=== PATIENT | male | born 1960 ===

== ENCOUNTER 2018-01-21 15:09 | Inpatient (IN) | payer OTHER ==
[2018-01-21] MEDS ORDERED: Morphine 4 mg/ml ISec IVP STA (15:41)
--- NOTE | 2018-01-21 15:47 | ED PDOC ---
Arrival/HPI - General Chief Complaint: Abdominal Pain Time Seen by Provider: 01/21/18 15:21 Historian: Patient, Family - History of Present Illness Narrative History of Present Illness (Text): 01/21/18 15:38 Patient is a 57 year old male whose past medical history includes colon cancer, and colon resection, who presents to the Emergency department with his family members for worsening abdominal pain. Patient was diagnosed with colon cancer in 2017 and is being treated with chemo-radiation therapy. He reports experiencing left sided abdominal pain for the past month, but presents to the emergency room today because the pain has become more severe, and is not alleviated with Percocet and Morphine. Of note per , patient last took Percocet and Morphine at 14:00 today. He denies any fever, vomiting, diarrhea, shortness of breath, and states he is eating well. He does note feeling bloated for the past few days. Oncologist: Time/Duration: Other (1 month) Symptom Onset: Gradual Symptom Course: Worsening Context: Other (chemo and radiation therapy) Past Medical History - Provider Review Nursing Documentation Reviewed: Yes - Cardiac Hx Hypertension: Yes - Hematological/Oncological Hx Cancer: Yes (Colon) Hx Chemotherapy: Yes - Psychiatric Hx Substance Use: No - Surgical History Hx Cataract Extraction: Yes Other/Comment: Colon surgery - Suicidal Assessment Feels Threatened In Home Enviroment: No Family/Social History - Physician Review Nursing Documentation Reviewed: Yes Family/Social History: Unknown Family HX Smoking Status: Light Smoker < 10 Cigarettes Daily Hx Alcohol Use: Yes Frequency of alcohol use: Socially Hx Substance Use: No Allergies/Home Meds Allergies/Adverse Reactions: Allergies No Known Allergies Allergy (Verified 01/21/18 15:24) Home Medications: Home Meds Medication Instructions Recorded Confirmed Felodipine [Felodipine ER] 1 tab PO DAILY 06/30/14 07/26/14 Losartan/Hydrochlorothiazide 1 tab DAILY 06/30/14 07/26/14 [Losartan Potassium-Hydrochlorothiazide 12.5 M] Fenofibrate [Triglide] 50 mg PO DAILY 07/26/14 07/26/14 Physical Exam - Physical Exam Narrative Physical Exam (Text): 01/21/18 15:50 Head: Atraumatic. Normocephalic. Eyes: PERRL. EOMI. Conjunctivae are not pale. ENT: Mucous membranes are moist and intact. Oropharynx is clear and symmetric. Sclera anicteric. Neck: Supple. Full ROM. No JVD. No lymphadenopathy. Cardiovascular: Regular rate. Regular rhythm. No murmurs, rubs, or gallops. Distal pulses are 2+ and symmetric. Pulmonary/Chest: No evidence of respiratory distress. Clear to auscultation bilaterally. No wheezing, rales or rhonchi. Abdominal: Soft and mildly distended. Focal left lower quadrant tenderness. No rebound. No rigidity. NO pulsatile masses. No inguinal hernias palpated.. No Good bowel sounds. Rectal: no gross bleeding Back: No CVA tenderness. Extremities: No edema. No cyanosis. No clubbing. Full range of motion in all extremities. No calf tenderness. Skin: Skin is warm and dry. No petechiae. No purpura. Neurological: Alert, awake, and oriented. Motor and sensory exam intact. Psychiatric: Good eye contact. Normal interaction, affect, and behavior. 01/21/18 20:23 Vital Signs Reviewed: Yes Vital Signs Temp Pulse Resp BP Pulse Ox 01/21/18 15:16 98.1 F 92 H 18 155/98 H 97 Temperature: Afebrile Blood Pressure: Hypertensive Pulse: Regular Respiratory Rate: Normal Appearance: Positive for: Ill-Appearing Mental Status: Positive for: Alert and Oriented X 3 Medical Decision Making ED Course and Treatment: 01/21/18 15:38 Impression: 57 year old male who has colon cancer and is complaining of ongoing worsening abdominal pain for the past month, which today has increased in severity. Differential Diagnosis included but are not limited to: Plan: -- Abdominal and Pelvic CT with IV contrast -- EKG -- Labs -- Cardiac enzymes -- Blood work -- Chest X-ray -- Morphine -- IV fluids -- Blood and Urine Culture -- Urinalysis -- Reassess and disposition Prior Visits: Notes and results from previous visits were reviewed. Progress Notes: 01/21/18 16:43 On reevaluation patient's pain has significantly improved after receiving IV morphine. He currently rates his pain as a 2/10 in severity. Ordered oral potassium for hypokalemia. Awaiting CT scan at this time. 01/21/18 17:[address] with contrast: Dictator : Kamaljit Estrada MD IMPRESSION: No acute findings 01/21/18 18:31 Chest X-ray: Dictator : Kamaljit Estrada MD IMPRESSION: Small pleural effusions Patient on return from ct with return of severe pain, left sided. I communicated with his physician Dr. Macedo and reviewed patient's symptoms and history, pain reportedly present for quite some time but acutely worse. NO chest pain. No shortness of breath. Effusion noted on cxr but no respiratory symptoms currently. Additional iv morphine ordered. Currently no acute findings noted on CT but due to persistent pain, limitations of imaging, will admit for serial exams, observation. Case d/w oncall physician Dr. Yost, who agrees to admit patient with GI and oncology consultations. Patient afebrile in ED VS stable. 01/21/18 20:21 - Lab Interpretations I have reviewed the lab results: Yes - RAD Interpretation Inventory Control Manager: Radiologist - Scribe Statement The provider has reviewed the documentation as recorded by the Scribe Adilson Shanks Provider Scribe Attestation: All medical record entries made by the Scribe were at my direction and personally dictated by me. I have reviewed the chart and agree that the record accurately reflects my personal performance of the history, physical exam, medical decision making, and the department course for this patient. I have also personally directed, reviewed, and agree with the discharge instructions and disposition. Disposition/Present on Arrival - Present on Arrival Any Indicators Present on Arrival: No History of DVT/PE: No History of Uncontrolled Diabetes: No Urinary Catheter: No History of Decub. Ulcer: No History Surgical Site Infection Following: None - Disposition Have Diagnosis and Disposition been Completed?: Yes Diagnosis: Abdominal pain, Pleural effusion Disposition: HOSPITALIZED Disposition Time: 17:30 Patient Plan: Admission, Observation Patient Problems: Current Active Problems Problem Status Onset Abdominal pain Acute Colon cancer metastasized to intra-abdominal lymph node Acute Pleural effusion Acute Condition: FAIR
[2018-01-21] MEDS: Sodium Chloride 0.9% 1,000 ML IV SCH (16:16)
[2018-01-21 16:25] LABS: PH,URINE 7.5 (4.7-8.0); URINE BILIRUBIN NEGATIVE (NEGATIVE); URINE BLOOD TRACE-INTACT (NEGATIVE); URINE GLUCOSE (UA) NEGATIVE (NEGATIVE); URINE LEUKOCYTE ESTERASE NEGATIVE Leu/uL (NEGATIVE); URINE PROTEIN NEGATIVE mg/dL (<30 mg/dL); URINE UROBILINOGEN 0.2 E.U./dL (<1 E.U./dL)
[2018-01-21 16:28] LABS: GRAN # 4.96 (1.4-6.5); GRAN % 71.3 % (50.0-68.0); HEMOGLOBIN 14.9 g/dL (14.0-18.0); LYMPH # 1.3 (1.2-3.4); LYMPH % 18.6 % (22.0-35.0); MEAN CELL VOLUME 92.4 fl (80.0-105.0); MEAN CORPUSCULAR HEMOGLOBIN 31.4 pg (25.0-35.0); MEAN PLATELET VOLUME 8.8 fl (7.0-11.0); MONO # 0.7 (0.1-0.6); MONO % 10.1 % (1.0-6.0); RBC 4.74 10^6/uL (3.5-6.1); RED CELL DISTRIBUTION WIDTH 14.3 % (11.5-14.5)
[2018-01-21 16:28] LABS: URINE APPEARANCE CLEAR (CLEAR); URINE COLOR STRAW (YELLOW)
[2018-01-21 16:29] LABS: INR 0.97
[2018-01-21 16:30] LABS: URINE BACTERIA FEW (NEG); URINE WBC 0 - 2 /hpf (0-6)
[2018-01-21] MEDS ORDERED: Iohexol 350 MG/100 ML VIAL ONE (16:35)
[2018-01-21 16:38] LABS: ALB/GLOB RATIO 1.2 (1.1-1.8); ALBUMIN 3.2 g/dL (3.0-4.8); ALT/SGPT 39 U/L (7-56); AMYLASE 78 U/L (35-125); AST/SGOT 33 U/L (17-59); BLOOD UREA NITROGEN 12 mg/dL (7-21); CALCIUM 8.1 mg/dL (8.4-10.5); GFR NON-AFRICAN AMERICAN > 60
[2018-01-21] MEDS ORDERED: Potassium Chloride 20 mEq ER Tab PO STA (16:39)
[2018-01-21 16:41] LABS: PARTIAL THROMBOPLASTIN TIME 48.8 Seconds (25.1-36.5)
[2018-01-21 16:48] LABS: TROPONIN I < 0.01 ng/mL
[2018-01-21] MEDS ORDERED: Morphine 2 mg/ml ISec IVP STA ×2 (17:19→23:33)
--- NOTE | 2018-01-21 17:31 | CT ---
Date of service: 01/21/2018 PROCEDURE: CT Abdomen and Pelvis with contrast HISTORY: severe pain hx of colon cancer, left sided pain COMPARISON: None. TECHNIQUE: Contrast dose: 100 cc of Omni 350 Radiation dose: Total exam DLP = 890.15 mGy-cm. This CT exam was performed using one or more of the following dose reduction techniques: Automated exposure control, adjustment of the mA and/or kV according to patient size, and/or use of iterative reconstruction technique. FINDINGS: LOWER THORAX: Moderate size pleural effusions bilaterally with adjacent consolidation LIVER: Unremarkable. No gross lesion or ductal dilatation. GALLBLADDER AND BILE DUCTS: Unremarkable. PANCREAS: Unremarkable. No gross lesion or ductal dilatation. SPLEEN: Unremarkable. ADRENALS: Unremarkable. No mass. KIDNEYS AND URETERS: Unremarkable. No hydronephrosis. No solid mass. VASCULATURE: Unremarkable. No aortic aneurysm. Mild aortic calcification BOWEL: Unremarkable. No obstruction. No gross mural thickening. There is a moderate degree of constipation. A suture line is seen in the transverse colon APPENDIX: Normal appendix. PERITONEUM: Minimal free fluid in the pelvis LYMPH NODES: Unremarkable. No enlarged lymph nodes. BLADDER: Unremarkable. REPRODUCTIVE: Unremarkable. BONES: No acute fracture. OTHER FINDINGS: None. IMPRESSION: No acute findings
--- NOTE | 2018-01-21 17:47 | RAD ---
Date of service: 01/21/2018 HISTORY: severe abdominal pain COMPARISON: No prior. FINDINGS: LUNGS: No active pulmonary disease. PLEURA: Small pleural effusions CARDIOVASCULAR: No aortic atherosclerotic calcification present. Normal cardiac size. No pulmonary vascular congestion. OSSEOUS STRUCTURES: No significant abnormalities. VISUALIZED UPPER ABDOMEN: Normal. OTHER FINDINGS: None. IMPRESSION: Small pleural effusions
[2018-01-21] MEDS: HYDROmorphone 0.5 mg/0.5 ml ISec IVP PRN (22:12)
[2018-01-22] MEDS: HYDROmorphone 0.5 mg/0.5 ml ISec IVP PRN ×2 (01:07→04:14)
[2018-01-22] MEDS ORDERED: HYDROmorphone 0.5 mg/0.5 ml ISec IVP STA (01:34)
[2018-01-22] MEDS ORDERED: Morphine 4 mg/ml ISec IVP STA (06:59)
[2018-01-22] MEDS ORDERED: HYDROmorphone 2 mg/ml ISec IVP PRN (07:27)
[2018-01-22 09:08] LABS: ALB/GLOB RATIO 1.4 (1.1-1.8); ALBUMIN 3.9 g/dL (3.0-4.8); ALT/SGPT 37 U/L (7-56); AST/SGOT 32 U/L (17-59); BLOOD UREA NITROGEN 16 mg/dL (7-21); CALCIUM 9.3 mg/dL (8.4-10.5); GFR NON-AFRICAN AMERICAN > 60
[2018-01-22 09:16] LABS: BASO # 0.01 K/mm3 (0.0-2.0); BASO % 0.1 % (0.0-3.0); EOS % 0.5 % (1.5-5.0); GRAN # 5.4 (1.4-6.5); GRAN % 69.9 % (50.0-68.0); HEMOGLOBIN 14.8 g/dL (14.0-18.0); LYMPH # 1.2 (1.2-3.4); LYMPH % 15.2 % (22.0-35.0); MEAN CELL VOLUME 93.9 fl (80.0-105.0); MEAN CORPUSCULAR HEMOGLOBIN 31.2 pg (25.0-35.0); MEAN CORPUSCULAR HGB CONC 33.3 g/dl (31.0-37.0); MEAN PLATELET VOLUME 9.3 fl (7.0-11.0); MONO # 1.1 (0.1-0.6); MONO % 14.3 % (1.0-6.0); RBC 4.74 10^6/uL (3.5-6.1); RED CELL DISTRIBUTION WIDTH 14.7 % (11.5-14.5); WHITE BLOOD COUNT 7.7 10^3/uL (4.5-11.0)
[2018-01-22] MEDS: HYDROmorphone 2 mg/ml ISec IVP PRN ×2 (09:21→12:02)
[2018-01-22] MEDS: Dexamethasone 4 mg/1 ml IVP SCH (09:24)
[2018-01-22] MEDS ORDERED: Non Formulary Medication (Losartan/Hydrochlorothiazide [Losartan-Hctz 50-12.5 Mg Tab] 1 TA PO SCH (10:00)
[2018-01-22] MEDS ORDERED: FENOFIBRATE 50 MG PO SCH (10:00)
[2018-01-22] MEDS ORDERED: Naproxen 275 mg Tab PO SCH (10:00)
[2018-01-22] MEDS: FELODIPINE 10 MG PO SCH (10:25)
--- NOTE | 2018-01-22 11:14 | CARD ---
APPROVED REPORT Date of service: 01/21/2018 EKG Measurement Heart [id number] <Conclusion> Normal sinus rhythm Nonspecific T wave abnormality Abnormal ECG
--- NOTE | 2018-01-22 11:46 | CP.PCM.CON ---
Addendum entered and electronically signed by Sheng Lopez DO 01/22/18 12:02: #Elevated PTT - Unclear etiology. We will recheck PTT in AM. Original Note: <Sheng Lopez - Last Filed: 01/22/18 11:38> History of Present Illness - History of Present Illness History of Present Illness: GI Fellow PGY4, Consult note. 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 From the history, the cancer appears to be stage IV. has records with her and PET scan 1 month ago shows a lot of new hypermetabolic changes in the abdomen and chest. Patient presents to ED for progressive chronic abdominal pain. The pain is located on the left side and more upper than lower abdomen. Patient has been taking more and more opiate pain medications Percocet and Morphine but it is not helping the pain. He does have chronic constipation but only take prune juice. He denies N/V or bleeding. Last EGD was many years ago. PMHx: As above. HTN. PSHx: Partial colectomy SocHx: Admits occasional alcohol use. Denies smoking. 12pt ROS completed and negative except for above. Past Patient History - Past Social History Smoking Status: Never Smoked - CARDIAC Hx Hypertension: Yes - HEMATOLOGICAL/ONCOLOGICAL Hx Cancer: Yes (Colon) Hx Chemotherapy: Yes - MUSCULOSKELETAL/RHEUMATOLOGICAL Hx Falls: No - PSYCHIATRIC Hx Substance Use: No - SURGICAL HISTORY Hx Cataract Extraction: Yes Other/Comment: Colon surgery Meds Allergies/Adverse Reactions: Allergies Allergy/AdvReac Type Severity Reaction Status Date / Time No Known Allergies Allergy Verified 01/21/18 15:24 - Medications Medications: Current Medications Dexamethasone (Decadron Inj) 4 mg IVP ONCE [facility] Last Admin: 01/22/18 09:24 Dose: 4 mg Fenofibrate (Tricor) 48 mg PO DAILY [facility] Last Admin: 01/22/18 09:26 Dose: 48 mg Hydrochlorothiazide (Microzide) 12.5 mg PO DAILY [facility] Last Admin: 01/22/18 09:26 Dose: 12.5 mg Hydromorphone HCl (Dilaudid) 2 mg IVP Q3 PRN PRN Reason: Pain, severe (8-10) Last Admin: 11/04/18 09:21 Dose: 2 mg Sodium Chloride (Sodium Chloride 0.9%) 1,000 mls @ 100 mls/hr IV .Q10H [facility] Last Admin: 01/21/18 16:16 Dose: 100 mls/hr Losartan Potassium (Cozaar) 50 mg PO DAILY [facility] Last Admin: 01/22/18 09:25 Dose: 50 mg Meclizine HCl (Antivert) 25 mg PO TID PRN PRN Reason: Dizziness Naproxen (Anaprox) 275 mg PO BID [facility] Last Admin: 01/22/18 09:24 Dose: 275 mg Felodipine [ Felodipine Er] 10 Mg (Home Med) 1 tab PO DAILY [facility] Last Admin: 01/22/18 10:25 Dose: 1 tab Physical Exam - Constitutional Appears: Non-toxic, No Acute Distress - Head Exam Head Exam: ATRAUMATIC, NORMAL INSPECTION - Eye Exam Eye Exam: EOMI, Normal appearance - ENT Exam ENT Exam: Mucous Membranes Moist, Normal Exam - Respiratory Exam Respiratory Exam: Clear to Auscultation Bilateral, NORMAL BREATHING PATTERN - Cardiovascular Exam Cardiovascular Exam: REGULAR RHYTHM, +S1, +S2 - GI/Abdominal Exam GI & Abdominal Exam: Distended, Hypoactive Bowel Sounds, Soft, Tenderness - Extremities Exam Extremities exam: Positive for: normal inspection. Negative for: tenderness - Neurological Exam Neurological exam: Alert, CN II-XII Intact, Oriented x3 - Psychiatric Exam Psychiatric exam: Normal Affect, Normal Mood - Skin Skin Exam: Dry, Normal Color Results - Vital Signs Recent Vital Signs: Last Vital Signs Temp 98.3 F 01/22/18 08:20 Pulse 71 01/22/18 09:25 Resp 20 01/22/18 08:20 BP 155/106 H 01/22/18 09:25 Pulse Ox 98 01/22/18 08:20 - Labs Result Diagrams: 01/22/18 08:50 01/22/18 08:30 Labs: Laboratory Results - last 24 hr 01/21/18 01/21/18 01/21/18 10:33 10:33 10:33 WBC 7.0 RBC 4.74 Hgb 14.9 Hct 43.8 MCV 92.4 MCH 31.4 MCHC 34.0 RDW 14.3 Plt Count 124 MPV 8.8 Gran % 71.3 H Lymph % (Auto) 18.6 L [place] % (Auto) 10.1 H Eos % (Auto) 0.0 L Baso % (Auto) 0.0 Gran # 4.96 Lymph # (Auto) 1.3 Rhea # (Auto) 0.7 H Eos # (Auto) 0.0 Baso # (Auto) 0.00 PT 11.0 INR 0.97 APTT 48.8 H Sodium 141 Potassium 3.1 L Chloride 108 H Carbon Dioxide 27 Anion Gap 9 L BUN 12 Creatinine 0.6 L Est GFR ( Amer) > 60 Est GFR (Non-Af Amer) > 60 POC Glucose (mg/dL) Random Glucose 112 H Calcium 8.1 L Total Bilirubin 0.4 AST 33 ALT 39 Alkaline Phosphatase 52 Lactate Dehydrogenase 631 Total Creatine Kinase 36 Troponin I < 0.01 Total Protein 5.8 Albumin 3.2 Globulin 2.6 Albumin/Globulin Ratio 1.2 Amylase 78 Urine Color Urine Appearance Urine pH Ur Specific [place] Urine Protein Urine Glucose (UA) Urine Ketones Urine Blood Urine Nitrate Urine Bilirubin Urine Urobilinogen Ur Leukocyte Esterase Urine RBC Urine WBC Urine Bacteria 01/21/18 01/21/18 01/22/18 15:40 15:52 08:30 WBC RBC Hgb Hct MCV MCH MCHC RDW Plt Count MPV Gran % Lymph % (Auto) Rhea % (Auto) Eos % (Auto) Baso % (Auto) Gran # Lymph # (Auto) Rhea # (Auto) Eos # (Auto) Baso # (Auto) PT INR APTT Sodium 140 Potassium 3.6 Chloride 106 Carbon Dioxide 26 Anion Gap 12 BUN 16 Creatinine 0.7 L Est GFR ( Amer) > 60 Est GFR (Non-Af Amer) > 60 POC Glucose (mg/dL) 118 H Random Glucose 193 H Calcium 9.3 Total Bilirubin 0.6 AST 32 ALT 37 Alkaline Phosphatase 58 Lactate Dehydrogenase Total Creatine Kinase Troponin I Total Protein 6.7 Albumin 3.9 Globulin 2.9 Albumin/Globulin Ratio 1.4 Amylase Urine Color Straw Urine Appearance Clear Urine pH 7.5 Ur Specific [place] 1.010 Urine Protein Negative Urine Glucose (UA) Negative Urine Ketones Negative Urine Blood Trace-intact H Urine Nitrate Negative Urine Bilirubin Negative Urine Urobilinogen 0.2 Ur Leukocyte Esterase Negative Urine RBC 1 - 3 Urine WBC 0 - 2 Urine Bacteria Few 01/22/18 08:50 WBC 7.7 RBC 4.74 Hgb 14.8 Hct 44.5 MCV 93.9 MCH 31.2 MCHC 33.3 RDW 14.7 H Plt Count 123 MPV 9.3 Gran % 69.9 H Lymph % (Auto) 15.2 L [place] % (Auto) 14.3 H Eos % (Auto) 0.5 L Baso % (Auto) 0.1 Gran # 5.40 Lymph # (Auto) 1.2 Rhea # (Auto) 1.1 H Eos # (Auto) 0.0 Baso # (Auto) 0.01 PT INR APTT Sodium Potassium Chloride Carbon Dioxide Anion Gap BUN Creatinine Est GFR ( Amer) Est GFR (Non-Af Amer) POC Glucose (mg/dL) Random Glucose Calcium Total Bilirubin AST ALT Alkaline Phosphatase Lactate Dehydrogenase Total Creatine Kinase Troponin I Total Protein Albumin Globulin Albumin/Globulin Ratio Amylase Urine Color Urine Appearance Urine pH Ur Specific [place] Urine Protein Urine Glucose (UA) Urine Ketones Urine Blood Urine Nitrate Urine Bilirubin Urine Urobilinogen Ur Leukocyte Esterase Urine RBC Urine WBC Urine Bacteria Assessment & Plan - Assessment and Plan (Free Text) Assessment: 57M with 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 #Progressive abdominal pain #Chronic constipation #Signet Ring Cell Colon Cancer - Aggressive, likely stage IV #Pleural effusions - suspected malignant #HTN PLAN: -DDx: Cancer related pain, PUD, constipation -CT scan reviewed. No acute finding, but a lot of stool in colon. Periaortic lym phadenopathy. -PET scan results reviewed. Test done 1 month ago with significant new hypermetabolic lesions diffusely. -Clear liquid diet -Start Bowel regimen. MiraLax BID. PA Colace. -Start PPI, carafate -Stop NSAIDs -Plan for EGD in AM. -Agree with consult for pain management. - Date & Time Date: 01/22/18 Time: 11:49 <Gracie Ellis V - Last Filed: 01/22/18 18:51> Meds - Medications Medications: Current Medications Dexamethasone (Decadron Inj) 4 mg IVP ONCE [facility] Last Admin: 01/22/18 09:24 Dose: 4 mg Fenofibrate (Tricor) 48 mg PO DAILY [facility] Last Admin: 01/22/18 09:26 Dose: 48 mg Home Med (Home Med) 1 unit PO DAILY [facility] Hydrochlorothiazide (Microzide) 12.5 mg PO DAILY [facility] Last Admin: 01/22/18 09:26 Dose: 12.5 mg Hydromorphone HCl (Dilaudid) 2 mg IVP Q2 PRN PRN Reason: Pain, severe (8-10) Sodium Chloride (Sodium Chloride 0.9%) 1,000 mls @ 100 mls/hr IV .Q10H [facility] Last Admin: 01/22/18 13:24 Dose: 100 mls/hr Losartan Potassium (Cozaar) 50 mg PO DAILY [facility] Last Admin: 01/22/18 09:25 Dose: 50 mg Meclizine HCl (Antivert) 25 mg PO TID PRN PRN Reason: Dizziness Morphine Sulfate (Morphine Extended Release Tab) 60 mg PO Q12 [facility] Last Admin: 01/22/18 13:04 Dose: 60 mg Felodipine [ Felodipine Er] 10 Mg (Home Med) 1 tab PO DAILY [facility] Last Admin: 01/22/18 10:25 Dose: 1 tab Pantoprazole Sodium (Protonix Ec Tab) 40 mg PO 0600 [facility] Polyethylene Glycol (Miralax) 17 gm PO BID [facility] Last Admin: 01/22/18 18:46 Dose: Not Given Results - Vital Signs Recent Vital Signs: Last Vital Signs Temp 98.2 F 01/22/18 16:40 Pulse 76 01/22/18 16:40 Resp 20 01/22/18 16:40 BP 134/88 01/22/18 16:40 Pulse Ox 96 01/22/18 16:40 - Labs Result Diagrams: 01/22/18 08:50 01/22/18 08:30 Labs: Laboratory Results - last 24 hr 01/22/18 01/22/18 08:30 08:50 WBC 7.7 RBC 4.74 Hgb 14.8 Hct 44.5 MCV 93.9 MCH 31.2 MCHC 33.3 RDW 14.7 H Plt Count 123 MPV 9.3 Gran % 69.9 H Lymph % (Auto) 15.2 L Rhea % (Auto) 14.3 H Eos % (Auto) 0.5 L Baso % (Auto) 0.1 Gran # 5.40 Lymph # (Auto) 1.2 Rhea # (Auto) 1.1 H Eos # (Auto) 0.0 Baso # (Auto) 0.01 Sodium 140 Potassium 3.6 Chloride 106 Carbon Dioxide 26 Anion Gap 12 BUN 16 Creatinine 0.7 L Est GFR ( Amer) > 60 Est GFR (Non-Af Amer) > 60 Random Glucose 193 H Calcium 9.3 Total Bilirubin 0.6 AST 32 ALT 37 Alkaline Phosphatase 58 Total Protein 6.7 Albumin 3.9 Globulin 2.9 Albumin/Globulin Ratio 1.4 Attending/Attestation - Attestation I have personally seen and examined this patient.: Yes I have fully participated in the care of the patient.: Yes I have reviewed all pertinent clinical information: Yes Notes (Text): This is an addendum to GI consult report dictated by the GI Fellow.The patient was seen and examined earlier. Medical records, lab studies, imagings were reviewed. Last 24 hours events reviewed. Agreed with the above treatment plan as outlined in GI Fellow 's notes with the addition of the following This 57 year old patient with aggressive signet cell colon cancer admitted with intractable abdominal pain Patient has been on chemo, on pain medication Admitted with worsening of the pain mainly in the upper abdomen On examination patient had significant tenderness in the upper abdomen CT scan was reviewed Recent PET scan report was also reviewed Plan clear liquids, high dose PPI and carafate, miralax EGD in AM Pain control 01/22/18 18:48
[2018-01-22] MEDS ORDERED: HYDROmorphone 2 mg/ml ISec IVP SCH (12:00)
[2018-01-22] MEDS: POLYETHYLENE GLYCOL 3350 17 GM/Dose PACKET PO SCH ×3 (13:04→18:46)
[2018-01-22] MEDS: Morphine 30 mg SR Tab PO SCH ×2 (13:04→21:27)
[2018-01-22] MEDS: Sodium Chloride 0.9% 1,000 ML IV SCH (13:24)
[2018-01-22] MEDS ORDERED: Home Med 1 UNIT PO SCH (17:45)
--- NOTE | 2018-01-22 19:56 | CP.PCM.CON ---
History of Present Illness - History of Present Illness History of Present Illness: 57 yo man, known to the office with history of metastatic colon cancer, h/o bowel resection in 2017, found to have metastatic cancer soon after and has been on chemotherapy since( 5FU, oxalipaltin, camptosar and to be changed to Vectib ix) The patient has been c/o increasing pain for the past 3 weeks or so, had his morphine increased along with the percocet, but as per the patient he was told by the pharmacist that the dose was too high, so he remained on the lower dose of the meds. The scans do not reveal the true extent of the disease, which is primarily in several lymph node groups in the chest and abdomen and soft tissue subcutaneous lesions. He has also had radiation to the lymph node mass in the left diaphragmatic area without much relief. The patient is currently stable on the current dose of dilaudid and pain meds. He is also scheduled for an EGD Past Patient History - Past Social History Smoking Status: Never Smoked - CARDIAC Hx Hypertension: Yes - HEMATOLOGICAL/ONCOLOGICAL Hx Cancer: Yes (Colon) Hx Chemotherapy: Yes - MUSCULOSKELETAL/RHEUMATOLOGICAL Hx Falls: No - PSYCHIATRIC Hx Substance Use: No - SURGICAL HISTORY Hx Cataract Extraction: Yes Other/Comment: Colon surgery Meds Allergies/Adverse Reactions: Allergies Allergy/AdvReac Type Severity Reaction Status Date / Time No Known Allergies Allergy Verified 01/21/18 15:24 - Medications Medications: Current Medications Dexamethasone (Decadron Inj) 4 mg IVP ONCE [facility] Last Admin: 01/22/18 09:24 Dose: 4 mg Fenofibrate (Tricor) 48 mg PO DAILY [facility] Last Admin: 01/22/18 09:26 Dose: 48 mg Home Med (Home Med) 1 unit PO DAILY [facility] Hydrochlorothiazide (Microzide) 12.5 mg PO DAILY [facility] Last Admin: 01/22/18 09:26 Dose: 12.5 mg Hydromorphone HCl (Dilaudid) 2 mg IVP Q2 PRN PRN Reason: Pain, severe (8-10) Sodium Chloride (Sodium Chloride 0.9%) 1,000 mls @ 100 mls/hr IV .Q10H [facility] Last Admin: 01/22/18 13:24 Dose: 100 mls/hr Losartan Potassium (Cozaar) 50 mg PO DAILY [facility] Last Admin: 01/22/18 09:25 Dose: 50 mg Meclizine HCl (Antivert) 25 mg PO TID PRN PRN Reason: Dizziness Morphine Sulfate (Morphine Extended Release Tab) 60 mg PO Q12 [facility] Last Admin: 01/22/18 13:04 Dose: 60 mg Felodipine [ Felodipine Er] 10 Mg (Home Med) 1 tab PO DAILY [facility] Last Admin: 01/22/18 10:25 Dose: 1 tab Pantoprazole Sodium (Protonix Ec Tab) 40 mg PO 0600 [facility] Polyethylene Glycol (Miralax) 17 gm PO BID [facility] Last Admin: 01/22/18 18:46 Dose: Not Given Results - Vital Signs Recent Vital Signs: Last Vital Signs Temp 98.2 F 01/22/18 16:40 Pulse 76 01/22/18 16:40 Resp 20 01/22/18 16:40 BP 134/88 01/22/18 16:40 Pulse Ox 96 01/22/18 16:40 - Labs Result Diagrams: 01/22/18 08:50 01/22/18 08:30 Labs: Laboratory Results - last 24 hr 01/22/18 01/22/18 08:30 08:50 WBC 7.7 RBC 4.74 Hgb 14.8 Hct 44.5 MCV 93.9 MCH 31.2 MCHC 33.3 RDW 14.7 H Plt Count 123 MPV 9.3 Gran % 69.9 H Lymph % (Auto) 15.2 L [place] % (Auto) 14.3 H Eos % (Auto) 0.5 L Baso % (Auto) 0.1 Gran # 5.40 Lymph # (Auto) 1.2 [place] # (Auto) 1.1 H Eos # (Auto) 0.0 Baso # (Auto) 0.01 Sodium 140 Potassium 3.6 Chloride 106 Carbon Dioxide 26 Anion Gap 12 BUN 16 Creatinine 0.7 L Est GFR ( Amer) > 60 Est GFR (Non-Af Amer) > 60 Random Glucose 193 H Calcium 9.3 Total Bilirubin 0.6 AST 32 ALT 37 Alkaline Phosphatase 58 Total Protein 6.7 Albumin 3.9 Globulin 2.9 Albumin/Globulin Ratio 1.4 Assessment & Plan (1) Colon cancer metastasized to intra-abdominal lymph node Assessment and Plan: 57 yo man with metastatic colon cancer to multiple lymph node sites, possible new malignant pleural effusions, increasing CEA level, scheduled to change chemo this week, admitted with increasing pain, without nausea, vomiting, currently comfortable with increased pain meds. There seems to be no evidence of perforation, obstruction on the CAT scans. For EGD to R/O gastric pathology. If normal, tolerating PO and the pain is under control, the patient may be discharged home so that he can start his new chemo. Status: Acute
[2018-01-22 21:22] LABS: ALB/GLOB RATIO 1.3 (1.1-1.8); ALBUMIN 3.9 g/dL (3.0-4.8); ALT/SGPT 38 U/L (7-56); AST/SGOT 31 U/L (17-59); BLOOD UREA NITROGEN 12 mg/dL (7-21); CALCIUM 9.4 mg/dL (8.4-10.5); GFR NON-AFRICAN AMERICAN > 60
[2018-01-23] MEDS: Oxycodone/Acetaminophen 10/325 mg Tab PO PRN ×5 (00:02→22:13)
--- NOTE | 2018-01-23 03:49 | HP ---
DATE OF EXAM: The patient was seen and examined on 01/22/2018. CHIEF COMPLAINT: Abdominal pain. HISTORY OF PRESENT ILLNESS: Mr. Kenan Soto is a 57-year-old male with past medical history of colon cancer, colon resection, status post chemotherapy and radiation therapy, came to emergency department with family with worsening of abdominal pain started couple of years ago. The patient was diagnosed with colon cancer in 2017 and being treated with chemoradiation therapy was done. He reports experiencing left-sided abdominal pain for the past month, but represents to the emergency room, they told because the pain had become more severe and is not alleviated with Percocet and morphine. The patient's sister was standing on the bedside. The patient with Percocet and morphine, but still in pain, according to him even while he was moving he is having tearing pain in either upper part of the abdomen. Denies nausea, vomiting or diarrhea. No GERD. No dyspepsia. We admitted the patient. GI and Oncology saw the patient. PAST MEDICAL HISTORY: Colon cancer, hypertension, and status post chemotherapy and radiation therapy. FAMILY HISTORY: Father and mother noncontributory. HABITS: Light smoker less than 10 cigarettes. Alcohol, yes. Substance abuse, no. ALLERGIES: THE PATIENT IS NOT ALLERGIC WITH ANY MEDICATIONS. HOME MEDICATIONS: Losartan, hydrochlorothiazide, potassium, and fenofibrate. REVIEW OF SYSTEMS: The patient was seen and examined at bedside, sitting on the recliner, but still complaining of both abdominal pain in the upper part. No fever. No chills. No nausea, vomiting, or diarrhea. According to him, pain is like tearing pain. No hematuria or hematochezia. PHYSICAL EXAMINATION: VITAL SIGNS: Temperature 98.1, pulse 92, respiratory rate 18, blood pressure , and pulse oximetry 97. HEENT: Head is normocephalic and atraumatic. Eyes: PERRLA. Extraocular muscles intact. Conjunctivae clear. Nose patent. Mucous membranes moist. NECK: Supple. No carotid bruit. No JVD or thyromegaly. CHEST: Bilaterally symmetrical. HEART: S1 and S2 positive. LUNGS: Clear to auscultation. ABDOMEN: Soft. Bowel sounds present. No organomegaly. EXTREMITIES: No edema. No cyanosis. NEUROLOGIC: The patient is awake and alert. Moving all 4 extremities. No focal deficits. LABORATORY DATA: White blood cells 7.7, hemoglobin 14.8, hematocrit 44.8, and platelets 123. Sodium 140, potassium 3.6, BUN 15, and creatinine 0.7. Glucose 193. ASSESSMENT AND PLAN: Mr. Kenan Soto is a 57-year-old male with hypokalemia replaced , hyperchloremia, and hyperglycemia. First, had hypocalcemia, but repeat is within normal limits. Hematuria. Went for CAT scan of abdomen and pelvis, chest x-ray, electrocardiogram, seen by Dr. Jazmin Rodriguez, oncologist and Dr. Gracie Ellis, agronomist. The patient's PTT is high, unclear reason. The patient has aggressive signet ring cell, colon cancer diagnosed in 02/2007, status post resection, chemotherapy and radiation therapy. According to GI, it looks like stage IV cancer. According to , PET scan was done one month ago shows a lot of new hypermetabolic changes in the abdomen and chest. History of hypertension, partial colectomy, occasional alcohol and smoking, progressive abdominal pain, chronic constipation, pleural effusion suspect malignancy, looks like the patient has pain of the malignancy, peptic ulcer disease, constipation. CAT scan reviewed. PET scan reviewed done one month ago. Started clear liquid diet, started bowel regimen by GI for MiraLax p.r.n. started PPI and Carafate, stop NSAIDs. Plan is EGD tomorrow. Discussion done with the patient and the patient's sister sitting on the bedside. I started the patient on morphine by Dr. Jennifer Wu, the pain medication. Repeat lab. Out of bed. Physical therapy. We will follow up. Kaylen Yost MD [place]
[2018-01-23] MEDS: Pantoprazole 40 mg EC Tab PO SCH (05:17)
[2018-01-23 07:12] LABS: HEMOGLOBIN 14.8 g/dL (14.0-18.0); MEAN CELL VOLUME 92.5 fl (80.0-105.0); MEAN CORPUSCULAR HEMOGLOBIN 30.9 pg (25.0-35.0); MEAN CORPUSCULAR HGB CONC 33.4 g/dl (31.0-37.0); MEAN PLATELET VOLUME 9.1 fl (7.0-11.0); RBC 4.79 10^6/uL (3.5-6.1); RED CELL DISTRIBUTION WIDTH 14.4 % (11.5-14.5); WHITE BLOOD COUNT 7.8 10^3/uL (4.5-11.0)
[2018-01-23 07:14] LABS: PARTIAL THROMBOPLASTIN TIME 31.5 Seconds (25.1-36.5); PROTHROMBIN TIME 11.5 SECONDS (9.4-12.5)
[2018-01-23 07:22] LABS: IRON 150 ug/dL (45-180)
[2018-01-23 07:31] LABS: LDL CHOLESTEROL 95 mg/dL (0-129)
[2018-01-23 07:33] LABS: BLOOD UREA NITROGEN 15 mg/dL (7-21); CALCIUM 9.4 mg/dL (8.4-10.5); GFR NON-AFRICAN AMERICAN > 60; HDL CHOLESTEROL 67 mg/dL (29-60)
[2018-01-23 07:37] LABS: % IRON SATURATION 37 % (20-55); TOTAL IRON BINDING CAPACITY 404 ug/dL (261-462)
--- NOTE | 2018-01-23 07:42 | CP.PCM.CON ---
History of Present Illness - History of Present Illness History of Present Illness: 57M with PMHx of signet ring cell colon cancer s/p right hemicolectomy, on chemotherapy and radiation. Patient presented [place] [facility] with complaints of abdominal pain. General surgery consulted to r/o bowel obstruction. Patient complaining of left sided abdominal pain. At time of examination patient denied nausea/vomiting. Patient reports he is passing flatus. PMHx: as stated above PSHx: R hemicolectomy SocHx: Denies smoking, denies illicit drug use. Review of Systems - Review of Systems Review of Systems: 12pt ROS unremarkable, except as stated in HPI Past Patient History - Past Social History Smoking Status: Light Smoker < 10 Cigarettes Daily - CARDIAC Hx Hypertension: Yes - HEMATOLOGICAL/ONCOLOGICAL Hx Cancer: Yes (Colon) Hx Chemotherapy: Yes - MUSCULOSKELETAL/RHEUMATOLOGICAL Hx Falls: No - PSYCHIATRIC Hx Substance Use: No - SURGICAL HISTORY Hx Cataract Extraction: Yes Other/Comment: Colon surgery Meds Allergies/Adverse Reactions: Allergies Allergy/AdvReac Type Severity Reaction Status Date / Time No Known Allergies Allergy Verified 01/21/18 15:24 - Medications Medications: Current Medications Dexamethasone (Decadron Inj) 4 mg IVP ONCE [facility] Last Admin: 01/22/18 09:24 Dose: 4 mg Fenofibrate (Tricor) 48 mg PO DAILY [facility] Last Admin: 01/22/18 09:26 Dose: 48 mg Home Med (Home Med) 1 unit PO DAILY [facility] Hydrochlorothiazide (Microzide) 12.5 mg PO DAILY [facility] Last Admin: 01/22/18 09:26 Dose: 12.5 mg Hydromorphone HCl (Dilaudid) 2 mg IVP Q2 PRN PRN Reason: Pain, severe (8-10) Sodium Chloride (Sodium Chloride 0.9%) 1,000 mls @ 100 mls/hr IV .Q10H [facility] Last Admin: 01/23/18 00:00 Dose: 100 mls/hr Losartan Potassium (Cozaar) 50 mg PO DAILY [facility] Last Admin: 01/22/18 09:25 Dose: 50 mg Meclizine HCl (Antivert) 25 mg PO TID PRN PRN Reason: Dizziness Morphine Sulfate (Morphine Extended Release Tab) 60 mg PO Q12 [facility] Last Admin: 01/22/18 21:27 Dose: 60 mg Felodipine [ Felodipine Er] 10 Mg (Home Med) 1 tab PO DAILY [facility] Last Admin: 01/22/18 10:25 Dose: 1 tab Oxycodone/Acetaminophen (Percocet 10/325 Mg Tab) 1 tab PO Q4H PRN PRN Reason: Pain, moderate (4-7) Last Admin: 01/23/18 06:19 Dose: 1 tab Pantoprazole Sodium (Protonix Ec Tab) 40 mg PO 0600 [facility] Last Admin: 01/23/18 05:17 Dose: 40 mg Polyethylene Glycol (Miralax) 17 gm PO BID [facility] Last Admin: 01/22/18 18:46 Dose: Not Given Physical Exam - Constitutional Appears: No Acute Distress - Head Exam Head Exam: NORMOCEPHALIC - Eye Exam Eye Exam: Normal appearance - ENT Exam ENT Exam: Mucous Membranes Moist - Respiratory Exam Respiratory Exam: NORMAL BREATHING PATTERN - Cardiovascular Exam Cardiovascular Exam: +S1, +S2 - GI/Abdominal Exam GI & Abdominal Exam: Soft, Tenderness. absent: Firm, Guarding, Rigid Additional comments: LLQ tenderness - Neurological Exam Neurological exam: Alert, Oriented x3 - Psychiatric Exam Psychiatric exam: Normal Mood - Skin Skin Exam: Dry, Intact, Warm Results - Vital Signs Recent Vital Signs: Last Vital Signs Temp 98.2 F 01/22/18 16:40 Pulse 79 01/23/18 06:19 Resp 20 01/22/18 16:40 BP 160/104 H 01/23/18 06:19 Pulse Ox 96 01/22/18 16:40 - Labs Result Diagrams: 01/23/18 06:45 01/23/18 06:45 Labs: Laboratory Results - last 24 hr 01/22/18 01/22/18 01/22/18 08:30 08:50 20:20 WBC 7.7 RBC 4.74 Hgb 14.8 Hct 44.5 MCV 93.9 MCH 31.2 MCHC 33.3 RDW 14.7 H Plt Count 123 MPV 9.3 Gran % 69.9 H Lymph % (Auto) 15.2 L Cherry % (Auto) 14.3 H Eos % (Auto) 0.5 L Baso % (Auto) 0.1 Gran # 5.40 Lymph # (Auto) 1.2 Cherry # (Auto) 1.1 H Eos # (Auto) 0.0 Baso # (Auto) 0.01 PT INR APTT Sodium 140 139 Potassium 3.6 3.7 Chloride 106 103 Carbon Dioxide 26 26 Anion Gap 12 13 BUN 16 12 Creatinine 0.7 L 0.6 L Est GFR ( Amer) > 60 > 60 Est GFR (Non-Af Amer) > 60 > 60 Random Glucose 193 H 172 H Calcium 9.3 9.4 Iron Total Bilirubin 0.6 0.8 AST 32 31 ALT 37 38 Alkaline Phosphatase 58 60 Total Protein 6.7 6.9 Albumin 3.9 3.9 Globulin 2.9 3.0 Albumin/Globulin Ratio 1.4 1.3 LDL Cholesterol Direct 01/23/18 01/23/18 01/23/18 06:45 06:45 06:45 WBC RBC Hgb Hct MCV MCH MCHC RDW Plt Count MPV Gran % Lymph % (Auto) Cherry % (Auto) Eos % (Auto) Baso % (Auto) Gran # Lymph # (Auto) Cherry # (Auto) Eos # (Auto) Baso # (Auto) PT 11.5 INR 1.00 APTT 31.5 Sodium Potassium Chloride Carbon Dioxide Anion Gap BUN Creatinine Est GFR ( Amer) Est GFR (Non-Af Amer) Random Glucose Calcium Iron 150 Total Bilirubin AST ALT Alkaline Phosphatase Total Protein Albumin Globulin Albumin/Globulin Ratio LDL Cholesterol Direct 95 01/23/18 06:45 WBC 7.8 RBC 4.79 Hgb 14.8 Hct 44.3 MCV 92.5 MCH 30.9 MCHC 33.4 RDW 14.4 Plt Count 120 MPV 9.1 Gran % Lymph % (Auto) Cherry % (Auto) Eos % (Auto) Baso % (Auto) Gran # Lymph # (Auto) Cherry # (Auto) Eos # (Auto) Baso # (Auto) PT INR APTT Sodium Potassium Chloride Carbon Dioxide Anion Gap BUN Creatinine Est GFR ( Amer) Est GFR (Non-Af Amer) Random Glucose Calcium Iron Total Bilirubin AST ALT Alkaline Phosphatase Total Protein Albumin Globulin Albumin/Globulin Ratio LDL Cholesterol Direct Assessment & Plan - Assessment and Plan (Free Text) Assessment: 57M with chronic abdominal pain, patient currently passing flatus Plan: -Patient currently passing flatus, bowel obstruction unlikely -F/u EGD results -C/w Analgesics -medical management per primary -Further recs per Dr. Shaq Nolan PGY3
[2018-01-23] MEDS: Morphine 30 mg SR Tab PO SCH ×2 (09:07→22:12)
[2018-01-23] MEDS: FELODIPINE 10 MG PO SCH (09:09)
[2018-01-23] MEDS: TENOFOVIR PO SCH (09:10)
[2018-01-23] MEDS: Sodium Chloride 0.9% 1,000 ML IV SCH ×3 (09:11→18:39)
[2018-01-23] MEDS: POLYETHYLENE GLYCOL 3350 17 GM/Dose PACKET PO SCH ×2 (09:11→17:40)
[2018-01-23] MEDS: Dexamethasone 4 mg/1 ml IVP SCH (10:02)
--- NOTE | 2018-01-23 11:26 | CP.PCM.PCO ---
Physician Communication Note - Physician Communication Note Physician Communication Note: Dx:Epigastric pain-EGD now/No surgery recommended
[2018-01-23 16:38] LABS: FOLATE > 20.0 ng/mL
[2018-01-23] MEDS ORDERED: Propofol 10 mg/ml Inj (20 ML) ONE (17:30)
[2018-01-23] MEDS ORDERED: Etomidate 20 mg/10ml Inj IV ONE (17:37)
[2018-01-23] MEDS ORDERED: HYDROmorphone 1 mg/ml ISec ONE (18:06)
[2018-01-23] MEDS ORDERED: Sodium Chloride 0.9% 1,000 ML IV SCH ×2 (18:15→18:45)
[2018-01-23] MEDS ORDERED: HYDROmorphone 1 mg/ml ISec IVP STA (18:31)
[2018-01-24] MEDS: HYDROmorphone 2 mg/ml ISec IVP PRN ×7 (01:49→22:26)
--- NOTE | 2018-01-24 02:52 | CON ---
DATE: 01/23/2018 PULMONARY CONSULTATION REFERRING PHYSICIAN: Kaylen Yost MD REASON FOR CONSULTATION: Pleural effusion, atelectasis, and short of breath. HISTORY OF PRESENT ILLNESS: This is a 57-year-old gentleman who has a known colon cancer, been resected in the past, been on radiation and chemotherapy, and hypertension. Recently about a month ago, had a PET scan done which shows recurrence of disease especially according to , lymph node involvements in the mediastinal, hilar, and retroperitoneal, been having left upper abdomen and also lower chest pain, tender to touch at the rib level. No hemoptysis. No hematemesis. No hematuria. No diarrhea reported. PAST MEDICAL HISTORY: As per history of present illness. ALLERGIES: NONE KNOWN. SOCIAL HISTORY: Stopped smoking many years ago. Denies any alcohol use. FAMILY HISTORY: No significant cardiopulmonary disease reported. MEDICATIONS: He is on meclizine 25 mg three times a day p.r.n., Cozaar 50 mg daily, Decadron 4 mg IV was given, Dilaudid 2 mg IV every 2 hours p.r.n. felodipine 1 tablet daily, hydrochlorothiazide 12.5 mg daily, MiraLax 17 g twice a day, also morphine extended release 60 mg every 12 hours, Percocet 10/325 mg one tablet every 4 hours p.r.n., Protonix 40 mg daily, and TriCor 48 mg daily. REVIEW OF SYSTEMS: No headache. No rhinitis. Has some cough and shortness of breath. Left anterior rib cage tenderness. Increased abdominal girth. No dysuria. No leg pain or leg swelling. PHYSICAL EXAMINATION: GENERAL: Sitting in the bed, mild distress secondary to abdominal and chest pain. VITAL SIGNS: Temperature is 98, heart rate is 62, respiratory rate is 18, blood pressure 151/98, and pulse ox 98% . HEENT: Moist mucous membranes. No ulcer or thrush. NECK: Supple. No JVD. LUNGS: Decreased breath sounds at both bases. HEART: S1 and S2. ABDOMEN: Soft and nontender. Has some ascites, midline surgical scar. Lower rib cage has rib tenderness on palpation. EXTREMITIES: There is no edema. NEUROLOGIC: Awake, alert, and follows simple commands. LABORATORY DATA: Shows hemoglobin 14.8, hematocrit 44.3, WBC 7.8, and platelets 120,000. INR 1. PTT is 32. Sodium 139, potassium 3.8, chloride 103, bicarbonate 29, BUN 15, creatinine 0.7, glucose 110, and calcium 9.4. Triglyceride 200 and cholesterol is 185. B12 is 882. Folate greater than 20. TSH 3.56. Microbiology, blood culture and urine culture, there is no growth. Has endoscopy done today which shows gastritis, normal duodenal bulb and second portion of the duodenum. IMPRESSION AND PLAN: Metastatic colon cancer involving lymph node at multiple sites, has a bilateral pleural effusion with atelectasis, ex-smoker, need to rule out bony metastasis. We will add inhaled bronchodilator. Continue gastric prophylaxis and DVT prophylaxis. We will get bone scan to assure there is no bony metastasis. I spoke to the patient's at bedside. All the questions answered. Thank you and we will follow with you. Alysia Mishra MD
--- NOTE | 2018-01-24 03:12 | PN ---
DATE: 01/23/2018 SUBJECTIVE: The patient was seen and examined at the bedside on 01/23/2018. The patient was seen sitting on the bed, have his dinner. and sister are on the bedside, also. No fever. No headache. No chest pain. No palpitations. Denied nausea, vomiting, passing flatus. PHYSICAL EXAMINATION: VITAL SIGNS: Temperature 98.2, pulse 79, respirations 20, blood pressure 130/104, pulse oximetry is 96. HEENT: Head is normocephalic, atraumatic. Eyes: PERRLA. Extraocular muscles are intact. Conjunctivae clear. Nose patent. NECK: Supple. No carotid bruits. No JVD or thyromegaly. CHEST: Bilaterally symmetrical. HEART: S1, S2 positive. LUNGS: Clear to auscultation. ABDOMEN: Soft. Bowel sounds present. No organomegaly. EXTREMITIES: No edema. No cyanosis. NEUROLOGICAL: The patient is awake, alert. Moving all four extremities. No focal deficit. LABORATORY DATA: White blood cells 7.4, hemoglobin 14.8, hematocrit 44.6, platelets 122. Sodium 131, potassium 3.8, BUN 50, creatinine 0.7, glucose 110. ASSESSMENT AND PLAN: Mr. Kenan Soto is a 57-year-old male who came with abdominal pain, history of colon cancer, right now passing flatus, bowel obstruction unlikely. Esophagogastroduodenoscopy done. Review Dr. New' communication report, no surgery recommended by Dr. New. Today the patient is planned for esophagogastroduodenoscopy. Esophagogastroduodenoscopy shows gastritis. Seen by oncologist, Dr. Jazmin Rodriguez. The patient with history of metastatic colon cancer, history of bowel obstruction in 2017, found to have metastatic cancer soon after and he has been on chemotherapy since, 5FU. Oncologist is planning to change the chemotherapy. The scan do not reveal any of the disease. The patient also has had radiation to the lymph node mass in the left diaphragmatic area without any relief. Currently, the patient is stable, GI and DVT prophylaxis, repeat labs, will follow up. Kaylen Yost MD [facility] # [id number] [place]
[2018-01-24] MEDS: Oxycodone/Acetaminophen 10/325 mg Tab PO PRN (05:41)
[2018-01-24] MEDS: Pantoprazole 40 mg EC Tab PO SCH (05:42)
[2018-01-24] MEDS: POLYETHYLENE GLYCOL 3350 17 GM/Dose PACKET PO SCH ×2 (09:45→17:22)
[2018-01-24] MEDS: Morphine 30 mg SR Tab PO SCH ×2 (09:46→21:25)
[2018-01-24] MEDS: FELODIPINE 10 MG PO SCH (09:46)
[2018-01-24] MEDS: TENOFOVIR PO SCH (09:47)
[2018-01-24] MEDS: Dexamethasone 4 mg/1 ml IVP SCH (09:50)
--- NOTE | 2018-01-24 11:07 | CP.PCM.PN ---
<Lara Ramos - Last Filed: 01/24/18 11:03> Subjective - Date & Time of Evaluation Date of Evaluation: 01/24/18 Time of Evaluation: 11:03 - Subjective Subjective: Gastroenterology Fellow/PGY6 Progress Note Patient sitting up in chair. Notes abdominal pain with attempting to lay flat. Tolerating diet. No bowel movement yesterday. A 12-point review of systems negative except for as above. Objective - Vital Signs/Intake and Output Vital Signs (last 24 hours): Temp Pulse Resp BP Pulse Ox 97.5 F L 72 20 179/85 H 99 01/24/18 08:28 01/24/18 10:00 01/24/18 08:28 01/24/18 08:28 01/24/18 08:28 Intake and Output: 01/24/18 01/24/18 06:59 18:59 Intake Total 420 Balance 420 - Medications Medications: Current Medications Arformoterol Tartrate (Brovana) 15 mcg IH [id number] [facility] Budesonide (Pulmicort Respules) 0.5 mg IH [id number] [facility] Dexamethasone (Decadron Inj) 4 mg IVP ONCE [facility] Last Admin: 01/24/18 09:50 Dose: 4 mg Fenofibrate (Tricor) 48 mg PO DAILY [facility] Last Admin: 01/24/18 09:46 Dose: 48 mg Fentanyl (Duragesic) 1 patch TD Q72H [facility] Last Admin: 01/24/18 10:37 Dose: 1 patch Home Med (Home Med) 1 unit PO DAILY [facility] Last Admin: 01/24/18 09:47 Dose: 1 unit Hydrochlorothiazide (Microzide) 12.5 mg PO DAILY [facility] Last Admin: 01/24/18 09:46 Dose: 12.5 mg Hydromorphone HCl (Dilaudid) 2 mg IVP Q2 PRN PRN Reason: Pain, severe (8-10) Last Admin: 01/24/18 07:09 Dose: 2 mg Losartan Potassium (Cozaar) 100 mg PO DAILY [facility] Last Admin: 01/24/18 09:47 Dose: 100 mg Meclizine HCl (Antivert) 25 mg PO TID PRN PRN Reason: Dizziness Morphine Sulfate (Morphine Extended Release Tab) 60 mg PO Q12 [facility] Last Admin: 01/24/18 09:46 Dose: 60 mg Felodipine [ Felodipine Er] 10 Mg (Home Med) 1 tab PO DAILY [facility] Last Admin: 01/24/18 09:46 Dose: 1 tab Oxycodone/Acetaminophen (Percocet 10/325 Mg Tab) 1 tab PO Q4H PRN PRN Reason: Pain, moderate (4-7) Last Admin: 01/24/18 05:41 Dose: 1 tab Pantoprazole Sodium (Protonix Ec Tab) 40 mg PO 0600 [facility] Last Admin: 01/24/18 05:42 Dose: 40 mg Polyethylene Glycol (Miralax) 17 gm PO BID [facility] Last Admin: 01/24/18 09:45 Dose: Not Given Pregabalin (Lyrica) 75 mg PO BID [facility] Last Admin: 01/24/18 10:37 Dose: 75 mg - Labs Labs: 01/23/18 06:45 01/23/18 06:45 PT 11.5 SECONDS (9.4-12.5) 01/23/18 06:45 INR 1.00 01/23/18 06:45 APTT 31.5 Seconds (25.1-36.5) 01/23/18 06:45 - Constitutional Appears: Non-toxic, No Acute Distress - Head Exam Head Exam: ATRAUMATIC, NORMOCEPHALIC - Eye Exam Eye Exam: EOMI, PERRL. absent: Scleral icterus Pupil Exam: PERRL. absent: Miosis, Mydriatic - ENT Exam ENT Exam: Mucous Membranes Moist, Normal Oropharynx - Neck Exam Neck Exam: Full ROM, Normal Inspection - Respiratory Exam Respiratory Exam: Clear to Ausculation Bilateral. absent: Rales, Rhonchi, Wheezes - Cardiovascular Exam Cardiovascular Exam: RRR, +S1, +S2. absent: Gallop, Rubs - GI/Abdominal Exam GI & Abdominal Exam: Soft, Tenderness, Normal Bowel Sounds. absent: Distended, Firm, Guarding, Rigid, Organomegaly, Rebound Additional comments: mild epigastric tenderness to palpation - Extremities Exam Extremities Exam: Normal Inspection. 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 Active treatment of upper abdominal pain 2/2 to aggressive colon cancer with metastases and bilateral pleural effusions. Plan: -POD1 (01/23) GED -showing gastritis, no acute pathology -ordered Duplex U/S to rule out portal system thrombosis -continue PPI daily -avoid NSAIDs -continue bowel regimen- Miralax BID and Colace PRN -continue to tailor pain management -pulmonology managing pulmonary toilet -follow up bone scan -will follow clinical course <Gracie Ellis V - Last Filed: 01/24/18 19:14> Objective - Vital Signs/Intake and Output Vital Signs (last 24 hours): Temp Pulse Resp BP Pulse Ox 98.4 F 82 20 139/94 H 98 01/24/18 16:39 01/24/18 18:00 01/24/18 16:39 01/24/18 16:39 01/24/18 16:39 Intake and Output: 01/24/18 01/25/18 18:59 06:59 Intake Total 900 Balance 900 - Medications Medications: Current Medications Arformoterol Tartrate (Brovana) 15 mcg IH [id number] [facility] Budesonide (Pulmicort Respules) 0.5 mg IH [id number] [facility] Dexamethasone (Decadron Inj) 4 mg IVP ONCE [facility] Last Admin: 01/24/18 09:50 Dose: 4 mg Fenofibrate (Tricor) 48 mg PO DAILY [facility] Last Admin: 01/24/18 09:46 Dose: 48 mg Fentanyl (Duragesic) 1 patch TD Q72H [facility] Last Admin: 01/24/18 10:37 Dose: 1 patch Home Med (Home Med) 1 unit PO DAILY [facility] Last Admin: 01/24/18 09:47 Dose: 1 unit Hydrochlorothiazide (Microzide) 12.5 mg PO DAILY [facility] Last Admin: 01/24/18 09:46 Dose: 12.5 mg Hydromorphone HCl (Dilaudid) 2 mg IVP Q2 PRN PRN Reason: Pain, severe (8-10) Last Admin: 01/24/18 18:11 Dose: 2 mg Losartan Potassium (Cozaar) 100 mg PO DAILY [facility] Last Admin: 01/24/18 09:47 Dose: 100 mg Meclizine HCl (Antivert) 25 mg PO TID PRN PRN Reason: Dizziness Morphine Sulfate (Morphine Extended Release Tab) 60 mg PO Q12 [facility] Last Admin: 01/24/18 09:46 Dose: 60 mg Felodipine [ Felodipine Er] 10 Mg (Home Med) 1 tab PO DAILY [facility] Last Admin: 01/24/18 09:46 Dose: 1 tab Oxycodone/Acetaminophen (Percocet 10/325 Mg Tab) 1 tab PO Q4H PRN PRN Reason: Pain, moderate (4-7) Last Admin: 01/24/18 05:41 Dose: 1 tab Pantoprazole Sodium (Protonix Ec Tab) 40 mg PO 0600 [facility] Last Admin: 01/24/18 05:42 Dose: 40 mg Polyethylene Glycol (Miralax) 17 gm PO BID [facility] Last Admin: 01/24/18 17:22 Dose: Not Given Pregabalin (Lyrica) 75 mg PO BID [facility] Last Admin: 01/24/18 18:08 Dose: 75 mg - Labs Labs: 01/23/18 06:45 01/23/18 06:45 PT 11.5 SECONDS (9.4-12.5) 01/23/18 06:45 INR 1.00 01/23/18 06:45 APTT 31.5 Seconds (25.1-36.5) 01/23/18 06:45 Attending/Attestation - Attestation I have personally seen and examined this patient.: Yes I have fully participated in the care of the patient.: Yes I have reviewed all pertinent clinical information, including history, physical exam and plan: Yes Notes (Text): This is an addendum to GI progress report dictated by the GI Fellow.The patient was seen and examined earlier. Medical records, lab studies, imagings were reviewed. Last 24 hours events reviewed. Agreed with the above treatment plan as outlined in GI Fellow 's notes with the addition of the following Patient's was at bedside The abdominal and chest pain probably secondary to metastatic disease Would recommend soft low residue diet Miralax for constipation Abdominal doppler to evaluate portal vein and hepatic vein 01/24/18 19:13
[2018-01-24] MEDS: Arformoterol 15 mcg/2 ml Inh Sol IH SCH (19:36)
[2018-01-24] MEDS: Budesonide 0.5 mg/2 ml Inhal Susp UD IH SCH (19:37)
--- NOTE | 2018-01-24 23:51 | PN ---
DATE: 01/24/2018 REFERRING PHYSICIAN: Kaylen Yost MD SUBJECTIVE: He is sitting up in a reclining chair, is at bedside, complaining of left lower chest area pain. No headache. No rhinitis. No dysuria. No leg pain or leg swelling. MEDICATIONS: He is on Antivert 25 mg three times a day p.r.n., Brovana inhaled twice a day, Cozaar 100 mg daily, Decadron 4 mg one dose was given, Dilaudid 2 mg every 12 hours p.r.n., Duragesic patch was started every 72 hours, Lyrica 75 mg twice a day, hydrochlorothiazide 12.5 mg daily, MiraLax 17 g daily, morphine extended release 60 mg every 12 hours, Percocet 10/325 every 4 hours p.r.n., Protonix 40 mg daily, Pulmicort inhaled twice a day, and TriCor 48 mg daily. OBJECTIVE: GENERAL: [id number] distress secondary to pain. VITAL SIGNS: Temperature is 98, heart rate is 82, respiratory rate is 20, blood pressure 139/94, and pulse ox 98% on room air. HEENT: Moist mucous membranes. Crowded airway. NECK: Supple. No JVD. LUNGS: Decreased breath sounds at the bases. HEART: S1 and S2. ABDOMEN: Soft. Left upper quadrant and right lower chest tenderness. EXTREMITIES: There is no edema. NEUROLOGIC: Awake, alert, and follows simple commands. LABORATORY DATA: Reviewed. No new lab is available since yesterday. Microbiology: Blood culture and urine culture, there is no growth. IMPRESSION AND PLAN: Metastatic colon cancer with retroperitoneal lymph involvement, mediastinal and hilar lymph node involvement according to history, may have a component of chronic lung disease, bilateral pleural effusion, atelectasis. Could not do bone scan because nuclear material was not available, so MRI of the chest is done to rule out metastatic disease to the bones. For now, continue pain management, bronchodilator. Thank you and we will follow with you. Alysia Mishra MD
[2018-01-25] MEDS: Oxycodone/Acetaminophen 10/325 mg Tab PO PRN (03:21)
[2018-01-25] MEDS: HYDROmorphone 2 mg/ml ISec IVP PRN ×5 (03:54→20:14)
[2018-01-25] MEDS: Pantoprazole 40 mg EC Tab PO SCH (06:41)
[2018-01-25 06:47] LABS: ALB/GLOB RATIO 1.2 (1.1-1.8); ALBUMIN 3.7 g/dL (3.0-4.8); ALT/SGPT 35 U/L (7-56); AST/SGOT 38 U/L (17-59); BLOOD UREA NITROGEN 20 mg/dL (7-21); CALCIUM 9.3 mg/dL (8.4-10.5); GFR NON-AFRICAN AMERICAN > 60
[2018-01-25 07:30] LABS: HEMOGLOBIN 15.3 g/dL (14.0-18.0); MEAN CELL VOLUME 92.1 fl (80.0-105.0); MEAN CORPUSCULAR HEMOGLOBIN 31.2 pg (25.0-35.0); MEAN CORPUSCULAR HGB CONC 33.8 g/dl (31.0-37.0); MEAN PLATELET VOLUME 9.2 fl (7.0-11.0); RBC 4.91 10^6/uL (3.5-6.1); RED CELL DISTRIBUTION WIDTH 14.6 % (11.5-14.5); WHITE BLOOD COUNT 8.3 10^3/uL (4.5-11.0)
[2018-01-25] MEDS: Budesonide 0.5 mg/2 ml Inhal Susp UD IH SCH ×2 (07:32→20:08)
[2018-01-25] MEDS: Arformoterol 15 mcg/2 ml Inh Sol IH SCH ×2 (07:32→20:08)
--- NOTE | 2018-01-25 08:30 | PN ---
DATE: 01/24/2018 SUBJECTIVE: The patient is seen and examined on the bedside, 01/24/2018. was sitting on the bedside also. Pain is little bit better. No fever. No chills. No nausea, vomiting, or diarrhea. No hematuria or hematochezia. No swelling of the legs. No headache. No dizziness. Still having abdominal pain. PHYSICAL EXAMINATION: VITAL SIGNS: Temperature 98.4, pulse 82, blood pressure 113/94, and respiratory rate 20. HEENT: Head is normocephalic and atraumatic. Eyes; PERRLA. Extraocular muscles are intact. Conjunctivae clear. Nose patent. Mucous membranes moist. NECK: Supple. No carotid bruit. No JVD or thyromegaly. CHEST: Bilaterally symmetrical. HEART: S1 and S2 positive. LUNGS: Clear to auscultation. ABDOMEN: Soft. Bowel sounds +. No organomegaly. EXTREMITIES: No edema. No cyanosis. NEUROLOGIC: The patient is awake and alert, moving all four extremities. No focal deficits. MEDICATIONS: Antivert, Brovana, Cozaar, Decadron, Dilaudid, Duragesic patch, Lyrica, hydrochlorothiazide, MiraLax, morphine, oxycodone, Protonix, and TriCor. LABORATORY DATA: White blood cells 7.8, hemoglobin 14.8, hematocrit 44.3, platelets 120. Sodium 139, potassium 3.8, BUN 15, creatinine 0.7, calcium 9.4, triglyceride 200, and HDL 67. ASSESSMENT AND PLAN: Mr. Kenan Soto is a 57-year-old male with hyperglycemia, hypertriglyceridemia, hematuria, came with abdominal pain, planned for upper endoscopy, seen by Dr. Ellis, has stage IV signet cell colon cancer, right hemicolectomy on chemoradiation therapy, hypertension, presented with intractable abdominal pain after treatment of her abdominal pain , colon cancer with metastasis and bilateral pleural effusion. 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 Continue trial of pain medication. Discussion done with the and nursing staff. Started patient on Lyrica and Duragesic patch. We will talk to Dr. Ayden New for nerve blocks. Mild pleural effusion with atelectasis, ex-smoker. inhaled bronchodilator. Gastric prophylaxis and DVT prophylaxis. Discussion done with patient, patient's . All questions were answered. Discussion was done with nurse practitioner also. We will follow up. Kaylen Yost MD DOMINICK
[2018-01-25] MEDS: Morphine 30 mg SR Tab PO SCH ×2 (09:17→21:09)
[2018-01-25] MEDS: POLYETHYLENE GLYCOL 3350 17 GM/Dose PACKET PO SCH ×2 (09:18→17:07)
[2018-01-25] MEDS: TENOFOVIR PO SCH (09:19)
[2018-01-25] MEDS: FELODIPINE 10 MG PO SCH (09:19)
--- NOTE | 2018-01-25 09:34 | CP.PCM.PN ---
Subjective - Date & Time of Evaluation Date of Evaluation: 01/25/18 Time of Evaluation: 09:30 - Subjective Subjective: Gastroenterology Fellow/PGY6 Progress Note Patient sitting up in chair. Admits to significant abdominal pain overnight that improved with analgesics. Tolerating diet. Notes bowel movement yesterday. A 12- point review of systems negative except for as above. Objective - Vital Signs/Intake and Output Vital Signs (last 24 hours): Temp Pulse Resp BP Pulse Ox 98.6 F 97 H 19 113/81 96 01/25/18 06:00 01/25/18 06:00 01/25/18 06:00 01/25/18 06:00 01/25/18 06:00 - Medications Medications: Current Medications Arformoterol Tartrate (Brovana) 15 mcg IH [id number] [facility] Last Admin: 01/25/18 07:32 Dose: 15 mcg Budesonide (Pulmicort Respules) 0.5 mg IH [id number] [facility] Last Admin: 01/25/18 07:32 Dose: 0.5 mg Dexamethasone (Decadron Inj) 4 mg IVP ONCE [facility] Last Admin: 01/24/18 09:50 Dose: 4 mg Fenofibrate (Tricor) 48 mg PO DAILY [facility] Last Admin: 01/25/18 09:18 Dose: 48 mg Fentanyl (Duragesic) 1 patch TD Q72H [facility] Last Admin: 01/24/18 10:37 Dose: 1 patch Home Med (Home Med) 1 unit PO DAILY [facility] Last Admin: 01/25/18 09:19 Dose: 1 unit Hydrochlorothiazide (Microzide) 12.5 mg PO DAILY [facility] Last Admin: 01/25/18 09:18 Dose: 12.5 mg Hydromorphone HCl (Dilaudid) 2 mg IVP Q2 PRN PRN Reason: Pain, severe (8-10) Last Admin: 01/25/18 09:17 Dose: 2 mg Losartan Potassium (Cozaar) 100 mg PO DAILY [facility] Last Admin: 01/25/18 09:18 Dose: 100 mg Meclizine HCl (Antivert) 25 mg PO TID PRN PRN Reason: Dizziness Morphine Sulfate (Morphine Extended Release Tab) 60 mg PO Q12 [facility] Last Admin: 01/25/18 09:17 Dose: 60 mg Felodipine [ Felodipine Er] 10 Mg (Home Med) 1 tab PO DAILY [facility] Last Admin: 01/25/18 09:19 Dose: 1 tab Oxycodone/Acetaminophen (Percocet 10/325 Mg Tab) 1 tab PO Q4H PRN PRN Reason: Pain, moderate (4-7) Last Admin: 01/25/18 03:21 Dose: 1 tab Pantoprazole Sodium (Protonix Ec Tab) 40 mg PO 0600 [facility] Last Admin: 01/25/18 06:41 Dose: 40 mg Polyethylene Glycol (Miralax) 17 gm PO BID [facility] Last Admin: 01/25/18 09:18 Dose: Not Given Pregabalin (Lyrica) 75 mg PO BID [facility] Last Admin: 01/25/18 09:18 Dose: 75 mg - Labs Labs: 01/25/18 06:00 01/25/18 06:00 PT 11.5 SECONDS (9.4-12.5) 01/23/18 06:45 INR 1.00 01/23/18 06:45 APTT 31.5 Seconds (25.1-36.5) 01/23/18 06:45 - Constitutional Appears: Non-toxic, No Acute Distress - Head Exam Head Exam: ATRAUMATIC, NORMOCEPHALIC - Eye Exam Eye Exam: EOMI, PERRL. absent: Scleral icterus Pupil Exam: PERRL. absent: Miosis, Mydriatic - ENT Exam ENT Exam: Mucous Membranes Moist, Normal Oropharynx - Neck Exam Neck Exam: Full ROM, Normal Inspection - Respiratory Exam Respiratory Exam: Clear to Ausculation Bilateral. absent: Rales, Rhonchi - Cardiovascular Exam Cardiovascular Exam: RRR, +S1, +S2. absent: Gallop, Rubs - GI/Abdominal Exam GI & Abdominal Exam: Soft, Tenderness, Normal Bowel Sounds. absent: Distended, Firm, Guarding, Rigid, Organomegaly, Rebound Additional comments: B/L UQ tenderness to palpation - Extremities Exam Extremities Exam: Normal Inspection. 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 Active treatment of upper abdominal pain 2/2 to aggressive colon cancer with metastases and bilateral pleural effusions. POD2 (01/23) EGD -showing gastritis with no acute pathology identified. Plan: -pending Duplex U/S to rule out portal system thrombosis -provide aququate pain control to be able to tolerate laying flat due to pain -continue PPI daily -avoid NSAIDs -counselled on bowel regimen as needed -continue to tailor pain management -pulmonology managing pulmonary toilet -will follow clinical course
[2018-01-25] MEDS: Dexamethasone 4 mg/1 ml IVP SCH ×3 (11:00→21:09)
[2018-01-25] MEDS ORDERED: Dexamethasone 4 mg/1 ml ONE (11:02)
[2018-01-25] MEDS ORDERED: Morphine 2 mg/ml ISec IVP STA (11:23)
--- NOTE | 2018-01-25 11:49 | CP.PCM.CON ---
History of Present Illness - History of Present Illness History of Present Illness: Mr Soto is a 57 year old male with stage IV colon cancer. He completed palliative radiation to the chest on December 06, 2017. Over the past couple of weeks, he has had increasing pain in the left lower chest in the same area that was treated. He states that the pain is 10/10 despite oral medication. He also complains of bilateral scapular pain with radiation down the arms. Due to poor pain control issues, he had came to [facility] for further evaluation. A CT of the abdomen and pelvis on January 21, 2018 revealed no acute findings. An endoscopy revealed mild inflammation in the stomch. He was supposed to get a MRI of the chest yesterday, however could not tolerate the procedure. We were asked to see him by Dr Roman for our input regarding the case. Review of Systems - Gastrointestinal Gastrointestinal: Abdominal Pain - Musculoskeletal Musculoskeletal: Back Pain Past Patient History - Past Social History Smoking Status: Light Smoker < 10 Cigarettes Daily Alcohol: None Home Situation {Lives}: With Family - CARDIAC Hx Hypertension: Yes - HEMATOLOGICAL/ONCOLOGICAL Hx Blood Transfusions: No - MUSCULOSKELETAL/RHEUMATOLOGICAL Hx Falls: No - PSYCHIATRIC Hx Substance Use: No - SURGICAL HISTORY Hx Surgeries: Yes - ANESTHESIA Hx Anesthesia Reactions: No Hx Malignant Hyperthermia: No Meds Allergies/Adverse Reactions: Allergies Allergy/AdvReac Type Severity Reaction Status Date / Time No Known Allergies Allergy Verified 01/21/18 15:24 - Medications Medications: Current Medications Arformoterol Tartrate (Brovana) 15 mcg IH [id number] [facility] Last Admin: 01/25/18 07:32 Dose: 15 mcg Budesonide (Pulmicort Respules) 0.5 mg IH [id number] [facility] Last Admin: 01/25/18 07:32 Dose: 0.5 mg Dexamethasone (Decadron Inj) 4 mg IVP Q12 [facility] Last Admin: 01/25/18 11:29 Dose: Not Given Fenofibrate (Tricor) 48 mg PO DAILY [facility] Last Admin: 01/25/18 09:18 Dose: 48 mg Fentanyl (Duragesic) 1 patch TD Q72H [facility] Last Admin: 01/24/18 10:37 Dose: 1 patch Home Med (Home Med) 1 unit PO DAILY [facility] Last Admin: 01/25/18 09:19 Dose: 1 unit Hydrochlorothiazide (Microzide) 12.5 mg PO DAILY [facility] Last Admin: 01/25/18 09:18 Dose: 12.5 mg Hydromorphone HCl (Dilaudid) 3 mg IVP Q2H PRN PRN Reason: Pain, severe (8-10) Losartan Potassium (Cozaar) 100 mg PO DAILY [facility] Last Admin: 01/25/18 09:18 Dose: 100 mg Meclizine HCl (Antivert) 25 mg PO TID PRN PRN Reason: Dizziness Morphine Sulfate (Morphine Extended Release Tab) 60 mg PO Q12 [facility] Last Admin: 01/25/18 09:17 Dose: 60 mg Naproxen (Anaprox) 275 mg PO BID [facility] Felodipine [ Felodipine Er] 10 Mg (Home Med) 1 tab PO DAILY [facility] Last Admin: 01/25/18 09:19 Dose: 1 tab Oxycodone/Acetaminophen (Percocet 10/325 Mg Tab) 1 tab PO Q4H PRN PRN Reason: Pain, moderate (4-7) Last Admin: 01/25/18 03:21 Dose: 1 tab Pantoprazole Sodium (Protonix Ec Tab) 40 mg PO 0600 [facility] Last Admin: 01/25/18 06:41 Dose: 40 mg Polyethylene Glycol (Miralax) 17 gm PO BID [facility] Last Admin: 01/25/18 09:18 Dose: Not Given Pregabalin (Lyrica) 75 mg PO BID [facility] Last Admin: 01/25/18 09:18 Dose: 75 mg Physical Exam - Eye Exam Eye Exam: EOMI - ENT Exam ENT Exam: Mucous Membranes Moist - Respiratory Exam Respiratory Exam: Clear to Auscultation Bilateral - Cardiovascular Exam Cardiovascular Exam: REGULAR RHYTHM - GI/Abdominal Exam GI & Abdominal Exam: Firm, Tenderness Additional comments: slight tenderness in the left lower chest - Extremities Exam Additional comments: He has limited range of motion with raising his arms above his head due to discomfort in the scapular region - Neurological Exam Neurological exam: CN II-XII Intact, Oriented x3 Results - Vital Signs Recent Vital Signs: Last Vital Signs Temp 98.6 F 01/25/18 06:00 Pulse 84 01/25/18 09:42 Resp 19 01/25/18 06:00 BP 113/81 01/25/18 06:00 Pulse Ox 96 01/25/18 06:00 - Labs Result Diagrams: 01/25/18 06:00 01/25/18 06:00 Labs: Laboratory Results - last 24 hr 01/25/18 01/25/18 06:00 06:00 WBC 8.3 RBC 4.91 Hgb 15.3 Hct 45.2 MCV 92.1 MCH 31.2 MCHC 33.8 RDW 14.6 H Plt Count 111 L MPV 9.2 Sodium 136 Potassium 4.4 Chloride 101 Carbon Dioxide 27 Anion Gap 13 BUN 20 Creatinine 0.8 Est GFR ( Amer) > 60 Est GFR (Non-Af Amer) > 60 Random Glucose 119 H Calcium 9.3 Total Bilirubin 1.3 AST 38 ALT 35 Alkaline Phosphatase 64 Total Protein 6.8 Albumin 3.7 Globulin 3.0 Albumin/Globulin Ratio 1.2 Assessment & Plan - Assessment and Plan (Free Text) Assessment: Mr Soto is a 57 year old male with stage IV colon cancer. He completed palliative radiation to the chest on December 06, 2017. Most recently, he was admitted to [facility] for increasing pain in the same area that was treated. He also complains of new pain in the scapular region with radiation down the arms. He would benefit from recent tumor markers to ascertain whether there is progression since the CT scans do not show obvious disease progression. We would also agree that a MRI of the chest would be beneficial since this would allow us to evaluate the anterior left chest lesions more closely, but also evaluate the spinal axis to see if there is any intracanal or neural foramina disease.
[2018-01-25] MEDS ORDERED: HYDROmorphone 2 mg/ml ISec IM SCH (12:00)
--- NOTE | 2018-01-25 12:22 | CP.PCM.PCO ---
Physician Communication Note - Physician Communication Note Physician Communication Note: Worsening L Pain-Add toradol/?2XLyrica/?Pain management adjustment
--- NOTE | 2018-01-25 15:27 | CP.PCM.CON ---
History of Present Illness - History of Present Illness History of Present Illness: Critical Consult for intractable pain 57M with stage IV colon cancer s/p palliative radiation c/o abd pain. Earlier reported as 12/28. CT of the abdomen and pelvis from 01/21 shows no acute findings. Upon my interview he is eating his lunch, says his abd pain is 2/10, centrally located in his mid abdomen. Much improved from earlier. He does not report chest pain, no sob, no pain with inspiration. No fevers. PMHx: As above. HTN. PSHx: as above SocHx: Admits occasional alcohol use. Denies smoking. Fam hx: HTN 12pt ROS completed and negative except for above. Past Patient History - Past Social History Smoking Status: Light Smoker < 10 Cigarettes Daily Alcohol: None Home Situation {Lives}: With Family - CARDIAC Hx Hypertension: Yes - HEMATOLOGICAL/ONCOLOGICAL Hx Blood Transfusions: No - MUSCULOSKELETAL/RHEUMATOLOGICAL Hx Falls: No - PSYCHIATRIC Hx Substance Use: No - SURGICAL HISTORY Hx Surgeries: Yes - ANESTHESIA Hx Anesthesia Reactions: No Hx Malignant Hyperthermia: No Meds Allergies/Adverse Reactions: Allergies Allergy/AdvReac Type Severity Reaction Status Date / Time No Known Allergies Allergy Verified 01/21/18 15:24 - Medications Medications: Current Medications Arformoterol Tartrate (Brovana) 15 mcg IH [id number] [facility] Last Admin: 01/25/18 07:32 Dose: 15 mcg Budesonide (Pulmicort Respules) 0.5 mg IH [id number] [facility] Last Admin: 01/25/18 07:32 Dose: 0.5 mg Dexamethasone (Decadron Inj) 4 mg IVP Q12 [facility] Last Admin: 01/25/18 11:29 Dose: Not Given Fenofibrate (Tricor) 48 mg PO DAILY [facility] Last Admin: 01/25/18 09:18 Dose: 48 mg Fentanyl (Duragesic) 1 patch TD Q72H [facility] Last Admin: 01/24/18 10:37 Dose: 1 patch Home Med (Home Med) 1 unit PO DAILY [facility] Last Admin: 01/25/18 09:19 Dose: 1 unit Hydrochlorothiazide (Microzide) 12.5 mg PO DAILY [facility] Last Admin: 01/25/18 09:18 Dose: 12.5 mg Hydromorphone HCl (Dilaudid) 3 mg IVP Q2H PRN PRN Reason: Pain, severe (8-10) Last Admin: 01/25/18 12:03 Dose: 3 mg Losartan Potassium (Cozaar) 100 mg PO DAILY [facility] Last Admin: 01/25/18 09:18 Dose: 100 mg Meclizine HCl (Antivert) 25 mg PO TID PRN PRN Reason: Dizziness Morphine Sulfate (Morphine Extended Release Tab) 60 mg PO Q12 [facility] Last Admin: 01/25/18 09:17 Dose: 60 mg Naproxen (Anaprox) 275 mg PO BID [facility] Felodipine [ Felodipine Er] 10 Mg (Home Med) 1 tab PO DAILY [facility] Last Admin: 01/25/18 09:19 Dose: 1 tab Oxycodone/Acetaminophen (Percocet 10/325 Mg Tab) 1 tab PO Q4H PRN PRN Reason: Pain, moderate (4-7) Last Admin: 01/25/18 03:21 Dose: 1 tab Pantoprazole Sodium (Protonix Ec Tab) 40 mg PO 0600 [facility] Last Admin: 01/25/18 06:41 Dose: 40 mg Polyethylene Glycol (Miralax) 17 gm PO BID [facility] Last Admin: 01/25/18 09:18 Dose: Not Given Pregabalin (Lyrica) 75 mg PO BID [facility] Last Admin: 01/25/18 09:18 Dose: 75 mg Physical Exam - Constitutional Appears: Well, Non-toxic, No Acute Distress - Eye Exam Eye Exam: EOMI, Normal appearance, PERRL Pupil Exam: NORMAL ACCOMODATION, PERRL - Respiratory Exam Respiratory Exam: Clear to Auscultation Bilateral, NORMAL BREATHING PATTERN - Cardiovascular Exam Cardiovascular Exam: REGULAR RHYTHM - GI/Abdominal Exam GI & Abdominal Exam: Normal Bowel Sounds, Tenderness - Extremities Exam Extremities exam: Positive for: normal inspection. Negative for: calf tenderness Results - Vital Signs Recent Vital Signs: Last Vital Signs Temp 98.6 F 01/25/18 06:00 Pulse 81 01/25/18 14:00 Resp 19 01/25/18 06:00 BP 113/81 01/25/18 06:00 Pulse Ox 96 01/25/18 06:00 - Labs Result Diagrams: 01/25/18 06:00 01/25/18 06:00 Labs: Laboratory Results - last 24 hr 01/25/18 01/25/18 06:00 06:00 WBC 8.3 RBC 4.91 Hgb 15.3 Hct 45.2 MCV 92.1 MCH 31.2 MCHC 33.8 RDW 14.6 H Plt Count 111 L MPV 9.2 Sodium 136 Potassium 4.4 Chloride 101 Carbon Dioxide 27 Anion Gap 13 BUN 20 Creatinine 0.8 Est GFR ( Amer) > 60 Est GFR (Non-Af Amer) > 60 Random Glucose 119 H Calcium 9.3 Total Bilirubin 1.3 AST 38 ALT 35 Alkaline Phosphatase 64 Total Protein 6.8 Albumin 3.7 Globulin 3.0 Albumin/Globulin Ratio 1.2 Assessment & Plan - Assessment and Plan (Free Text) Assessment: 57M with stage IV colon cancer s/p palliative radiation c/o abd pain. Pain is improved from earlier with pain meds. Patient reports spikes of uncontrolled pain throughout the day. I do no suspect any underlying critical causes for his pain. Abd exam and history not suggestive of perf as he is tolerating food as well. No signs of fevers, sepsis, bleeding. No chest pain. no SOB. No indication for ICU Optimize pain regimen with long acting basal pain control to avoid spikes monitor resp status with high dose pain meds EKG to ensure pain is not cardiac Please re-call ICU if any changes in status Mann Morin MD
[2018-01-25] MEDS: Naproxen 275 mg Tab PO SCH (17:48)
[2018-01-25] MEDS ORDERED: Naproxen 275 mg Tab PO SCH (18:00)
--- NOTE | 2018-01-25 20:00 | CP.PCM.PN ---
Subjective - Date & Time of Evaluation Date of Evaluation: 01/25/18 Time of Evaluation: 19:51 - Subjective Subjective: The patient is sitting up in the chair, with considerable relief in pain. He has had excruciating pain for the past couple days despite increase in the dose of the narcotics, he was started on decadron, lyrica and NSAIDs(Naproxen and Tor adol) today with some relief in pain. Will continue the same regimen for now. He has a good appetite, no N,V, diarrhea. Objective - Vital Signs/Intake and Output Vital Signs (last 24 hours): Temp Pulse Resp BP Pulse Ox 98.4 F 94 H 20 116/68 100 01/25/18 16:48 01/25/18 18:00 01/25/18 16:48 01/25/18 16:48 01/25/18 16:48 Intake and Output: 01/25/18 01/26/18 18:59 06:59 Intake Total 750 Balance 750 - Medications Medications: Current Medications Arformoterol Tartrate (Brovana) 15 mcg IH [id number] [facility] Last Admin: 01/25/18 07:32 Dose: 15 mcg Budesonide (Pulmicort Respules) 0.5 mg IH [id number] [facility] Last Admin: 01/25/18 07:32 Dose: 0.5 mg Dexamethasone (Decadron Inj) 4 mg IVP Q12 [facility] Last Admin: 01/25/18 11:29 Dose: Not Given Fenofibrate (Tricor) 48 mg PO DAILY [facility] Last Admin: 01/25/18 09:18 Dose: 48 mg Fentanyl (Duragesic) 1 patch TD Q72H [facility] Last Admin: 01/24/18 10:37 Dose: 1 patch Home Med (Home Med) 1 unit PO DAILY [facility] Last Admin: 01/25/18 09:19 Dose: 1 unit Hydrochlorothiazide (Microzide) 12.5 mg PO DAILY [facility] Last Admin: 01/25/18 09:18 Dose: 12.5 mg Hydromorphone HCl (Dilaudid) 3 mg IVP Q2H PRN PRN Reason: Pain, severe (8-10) Last Admin: 01/25/18 12:03 Dose: 3 mg Lorazepam (Ativan) 1 mg IVP ONCE ONE; Protocol Stop: 01/25/18 19:48 Losartan Potassium (Cozaar) 100 mg PO DAILY [facility] Last Admin: 01/25/18 09:18 Dose: 100 mg Meclizine HCl (Antivert) 25 mg PO TID PRN PRN Reason: Dizziness Morphine Sulfate (Morphine Extended Release Tab) 60 mg PO Q12 [facility] Last Admin: 01/25/18 09:17 Dose: 60 mg Naproxen (Anaprox) 275 mg PO BID [facility] Last Admin: 01/25/18 17:48 Dose: 275 mg Felodipine [ Felodipine Er] 10 Mg (Home Med) 1 tab PO DAILY [facility] Last Admin: 01/25/18 09:19 Dose: 1 tab Oxycodone/Acetaminophen (Percocet 10/325 Mg Tab) 1 tab PO Q4H PRN PRN Reason: Pain, moderate (4-7) Last Admin: 01/25/18 03:21 Dose: 1 tab Pantoprazole Sodium (Protonix Ec Tab) 40 mg PO 0600 [facility] Last Admin: 01/25/18 06:41 Dose: 40 mg Polyethylene Glycol (Miralax) 17 gm PO BID [facility] Last Admin: 01/25/18 17:07 Dose: Not Given Pregabalin (Lyrica) 75 mg PO BID [facility] Last Admin: 01/25/18 17:48 Dose: 75 mg - Labs Labs: 01/25/18 06:00 01/25/18 06:00 PT 11.5 SECONDS (9.4-12.5) 01/23/18 06:45 INR 1.00 01/23/18 06:45 APTT 31.5 Seconds (25.1-36.5) 01/23/18 06:45 Assessment and Plan (1) Colon cancer metastasized to intra-abdominal lymph node Assessment & Plan: 57 yo man with widely metastatic signet ring colon cancer, in severe pain, location at this time, most likely corresponding to a new left intercostal muscle lesion, the pericardial lymph nodes have improved after the radiation. For now will continue the current pain regimen. Check tumor markers, platelet counts and amylase/lipase levels.Will find out tomorrow if inpatient chemo(first dose of Folfiri/Vectibix) possible. Status: Acute
[2018-01-26] MEDS: HYDROmorphone 2 mg/ml ISec IVP PRN ×3 (03:00→21:05)
--- NOTE | 2018-01-26 03:51 | PN ---
DATE: 01/25/2018 PULMONARY PROGRESS NOTE REFERRING PHYSICIAN: Kaylen Yost MD SUBJECTIVE: He is out of bed to reclining chair. Night was unremarkable. Continues to have left upper quadrant and right lower chest area pain. No headache. No rhinitis. No leg pain or leg swelling. Radiation and oncology note reviewed and noted. The patient did receive radiation in the same area in the left lower chest area where the pain is at present time. He could not get MRI because could not lie flat. No nausea. No vomiting. PHYSICAL EXAMINATION VITAL SIGNS: Temperature is 98, heart rate is 94, respiratory rate is 20, blood pressure 116/68, pulse ox 99% on room air. HEENT: Moist mucous membranes. No ulcer or thrush noted. NECK: Supple. No JVD. LUNGS: Decreased breath sounds at the bases. HEART: S1 and S2. ABDOMEN: Soft. Nontender. No organomegaly. EXTREMITIES: No edema. NEUROLOGIC: Awake, alert, and follows simple commands. MEDICATIONS: He is on Naprosyn 275 mg twice a day, Antivert 25 mg three times a day p.r.n., Brovana inhaled twice a day, Cozaar 100 mg daily, Decadron 4 mg every 12 hours, Dilaudid 3 mg every 12 hours p.r.n., Duragesic patch every 72 hours, also been on felodipine ER 1 tab daily, Lyrica 75 mg twice a day, hydrochlorothiazide 12.5 mg daily, MiraLax 17 g twice a day, morphine extended release 60 mg every 12 hours, Percocet 10/325 every 4 hours p.r.n., Protonix 40 mg daily, Pulmicort inhaled twice a day, and TriCor 48 mg daily. LABORATORY DATA: Hemoglobin 15.3, hematocrit 45.2, WBC 8.3, platelet count is 111. Sodium 136, potassium 4.4, chloride 101, bicarbonate 27, BUN 20, creatinine 0.8, glucose 109, calcium 9.3, AST 38, ALT 37, alk phos is 64, albumin is 3.7. Microbiology; blood culture and urine culture, there is no growth. IMPRESSION AND PLAN: Metastatic colon cancer with retroperitoneal lymphadenopathy, mediastinal node involvement, chronic lung disease, bilateral pleural effusion, atelectasis. Pulmonary point of view, doing well. Continue bronchodilator. Supplement oxygen. Pain management. Could not get MRI because of pain. Seen by Oncology. Continue present pain management, bronchodilator, supplement oxygen, stool softener, deep venous thrombosis prophylaxis. Oncology followup. We will follow with you. Alysia Mishra MD
[2018-01-26] MEDS: Pantoprazole 40 mg EC Tab PO SCH (05:21)
[2018-01-26 07:01] LABS: AMYLASE 64 U/L (35-125); LIPASE 37 U/L (23-300)
[2018-01-26] MEDS: Arformoterol 15 mcg/2 ml Inh Sol IH SCH ×2 (07:45→19:53)
[2018-01-26] MEDS: Budesonide 0.5 mg/2 ml Inhal Susp UD IH SCH ×2 (07:45→19:53)
--- NOTE | 2018-01-26 08:12 | PN ---
DATE: 01/25/2018 SUBJECTIVE: The patient is a 57-year-old male. The patient was seen and examined at the bedside on 01/25/2018. The patient was sitting on the chair to his family members and further reporting them he was in intractable pain. Of that Dr. New saw the patient and then he ordered more Toradol. After getting Toradol, he felt a little bit relieved, but still having pain started on Decadron and Lyrica instead naproxen and Toradol that gave little bit relief. No fever, no chills. No hematuria, no hematochezia. No headache. No dizziness. No chest pain. No palpitation. Has good appetite. PHYSICAL EXAMINATION VITAL SIGNS: Temperature 98.4, pulse 94, respiratory rate 14, blood pressure 116/68. HEENT: Head is normocephalic and atraumatic. Eyes: PERRLA. Extraocular muscles are intact. Conjunctivae clear. Nose patent. NECK: Supple. No carotid bruit. No JVD or thyromegaly. CHEST: Bilaterally symmetrical. HEART: S1 and S2 positive. LUNGS: Clear to auscultation. ABDOMEN: Soft. Bowel sounds present. No organomegaly. EXTREMITIES: No edema. No cyanosis. NEUROLOGIC: The patient is awake and alert. Moving all four extremities. No focal deficits. MEDICATIONS: Brovana, Pulmicort, Decadron, TriCor, Duragesic, Microzide, Dilaudid, Ativan, Cozaar, morphine Extended Release, oxycodone, Protonix, MiraLax and Lyrica. LABORATORY DATA: White blood cells 8.3, hemoglobin 15.3, hematocrit 45 and platelets 111. Sodium 136, potassium 4.4, BUN 20, creatinine 0.8, glucose 119. ASSESSMENT AND PLAN: Ms. Brittany Grayson is a 57-year-old male with leukocytosis, hyperglycemia, colon cancer to intraabdominal lymph nodes, came with severe pain. The patient at this time most likely corresponding to the new left intercostal muscle region. The pericardial lymph nodes are improved after the radiation. Plan is to check the tumor markers. Routine labs, platelets, hemoglobin A1c. The patient has worsening pain Pain will be managed. Repeat labs. We will followup. Discussion done with Dr. Ayden New. Doctor seeing the patient's nurse back and forth. Kaylen Yost MD [facility] # [id number] DOMIN[place]
--- NOTE | 2018-01-26 09:37 | CP.PCM.PCO ---
Physician Communication Note - Physician Communication Note Physician Communication Note: Intractible worsening pain/PETSept)Neg help/NEEDS pain Management Rx
[2018-01-26] MEDS: Dexamethasone 4 mg/1 ml IVP SCH ×2 (10:09→21:05)
[2018-01-26] MEDS: TENOFOVIR PO SCH (10:10)
[2018-01-26] MEDS: FELODIPINE 10 MG PO SCH (10:10)
[2018-01-26] MEDS: Morphine 30 mg SR Tab PO SCH ×2 (10:11→21:58)
[2018-01-26] MEDS: POLYETHYLENE GLYCOL 3350 17 GM/Dose PACKET PO SCH (10:12)
[2018-01-26] MEDS: Naproxen 275 mg Tab PO SCH (10:13)
--- NOTE | 2018-01-26 13:18 | CP.PCM.CON ---
History of Present Illness - History of Present Illness History of Present Illness: 57 yo male with stage IV colon ca p/w intractable upper abdominal pain. Patient has had abdominal pain for past year, but it became much worse over the past week. CT abd/pelvis done on 01/21 did not show any acute findings. Patient st ates that pain is currently under control, /, but he feels 10/10 "tearing" upper abdominal pain when he attempts to lay down flat. The pain has made it difficult for him to sleep at night. He is currently on fentanyl patch 25 mcg/h, dilaudid 3 mg IVP q2h PRN, lyrica 75 mg PO bid. No chest pain, SOB, fever. Past Patient History - Past Social History Smoking Status: Light Smoker < 10 Cigarettes Daily Alcohol: None Home Situation {Lives}: With Family - CARDIAC Hx Hypertension: Yes - HEMATOLOGICAL/ONCOLOGICAL Hx Blood Transfusions: No - MUSCULOSKELETAL/RHEUMATOLOGICAL Hx Falls: No - PSYCHIATRIC Hx Substance Use: No - SURGICAL HISTORY Hx Surgeries: Yes - ANESTHESIA Hx Anesthesia Reactions: No Hx Malignant Hyperthermia: No Meds Allergies/Adverse Reactions: Allergies Allergy/AdvReac Type Severity Reaction Status Date / Time No Known Allergies Allergy Verified 01/21/18 15:24 - Medications Medications: Current Medications Arformoterol Tartrate (Brovana) 15 mcg IH [id number] [facility] Last Admin: 01/26/18 07:45 Dose: 15 mcg Budesonide (Pulmicort Respules) 0.5 mg IH [id number] [facility] Last Admin: 01/26/18 07:45 Dose: 0.5 mg Dexamethasone (Decadron Inj) 4 mg IVP Q12 [facility] Last Admin: 01/26/18 10:09 Dose: 4 mg Fenofibrate (Tricor) 48 mg PO DAILY [facility] Last Admin: 01/26/18 10:12 Dose: 48 mg Fentanyl (Duragesic) 1 patch TD Q72H [facility] Last Admin: 01/24/18 10:37 Dose: 1 patch Fluorouracil (Fluorouracil) 400 mg IVP ONCE ONE Stop: 01/26/18 14:01 Home Med (Home Med) 1 unit PO DAILY [facility] Last Admin: 01/26/18 10:10 Dose: 1 unit Hydrochlorothiazide (Microzide) 12.5 mg PO DAILY [facility] Last Admin: 01/26/18 10:11 Dose: 12.5 mg Hydromorphone HCl (Dilaudid) 3 mg IVP Q2H PRN PRN Reason: Pain, severe (8-10) Last Admin: 01/26/18 03:00 Dose: 3 mg Ondansetron HCl 16 mg/Dexamethasone 12 mg/Diphenhydramine HCl 50 mg/Famotidine 20 mg/ Sodium Chloride 64 mls @ 192 mls/hr IVPB ONCE ONE Stop: 01/26/18 14:19 Irinotecan HCl 150 mg/ Sodium (Chloride) 257.5 mls @ 128.75 mls/hr IV ONCE ONE Stop: 01/26/18 15:59 Panitumumab 400 mg/ Sodium (Chloride) 120 mls @ 120 mls/hr IV ONCE ONE Stop: 01/26/18 14:59 Fluorouracil 2,000 mg/ Sodium (Chloride) 1,040 mls @ 22.609 mls/hr IVP ONCE ONE Stop: 01/28/18 11:59 Losartan Potassium (Cozaar) 100 mg PO DAILY [facility] Last Admin: 01/26/18 10:09 Dose: 100 mg Meclizine HCl (Antivert) 25 mg PO TID PRN PRN Reason: Dizziness Naproxen (Anaprox) 275 mg PO BID [facility] Last Admin: 01/26/18 10:13 Dose: Not Given Felodipine [ Felodipine Er] 10 Mg (Home Med) 1 tab PO DAILY [facility] Last Admin: 01/26/18 10:10 Dose: 1 tab Oxycodone/Acetaminophen (Percocet 10/325 Mg Tab) 1 tab PO Q4H PRN PRN Reason: Pain, moderate (4-7) Last Admin: 01/25/18 03:21 Dose: 1 tab Pantoprazole Sodium (Protonix Ec Tab) 40 mg PO 0600 [facility] Last Admin: 01/26/18 05:21 Dose: 40 mg Polyethylene Glycol (Miralax) 17 gm PO BID [facility] Last Admin: 01/26/18 10:12 Dose: Not Given Pregabalin (Lyrica) 75 mg PO BID [facility] Last Admin: 01/26/18 10:11 Dose: 75 mg Physical Exam - Constitutional Appears: No Acute Distress - Head Exam Head Exam: ATRAUMATIC - Respiratory Exam Respiratory Exam: NORMAL BREATHING PATTERN - Cardiovascular Exam Cardiovascular Exam: +S1, +S2 - GI/Abdominal Exam GI & Abdominal Exam: Tenderness Results - Vital Signs Recent Vital Signs: Last Vital Signs Temp 97.5 F L 01/26/18 08:07 Pulse 109 H 01/26/18 10:00 Resp 20 01/26/18 08:07 BP 123/87 01/26/18 08:07 Pulse Ox 98 01/26/18 08:07 - Labs Result Diagrams: 01/25/18 06:00 01/25/18 06:00 Labs: Laboratory Results - last 24 hr 01/26/18 01/26/18 05:40 05:40 Amylase 64 Lipase 37 Carcinoembryonic Ag 248.0 H Assessment & Plan - Assessment and Plan (Free Text) Assessment: 57 yo male with stage IV colon ca with intractable upper abdominal pain when laying flat. Plan: - recommend GI to evaluate for endoscopic celiac plexus block - continue current pain medication regimen - follow-up with oncology regarding surgery and chemotherapy
[2018-01-26] MEDS ORDERED: FAMOTIDINE IVPB ONE (14:00)
[2018-01-26] MEDS ORDERED: [UNRECOGNIZED DRUG - OTHER] IVPB ONE (14:00)
[2018-01-26] MEDS ORDERED: SODIUM CHLORIDE 0.9% IV ONE ×2 (14:00→19:00)
[2018-01-26] MEDS ORDERED: Fluorouracil 500 mg/10 ml Inj IVP ONE (14:00)
[2018-01-26] MEDS ORDERED: IRINOTECAN IV ONE (14:00)
[2018-01-26] MEDS ORDERED: DIPHENHYDRAMINE IVPB ONE (14:00)
[2018-01-26] MEDS ORDERED: DEXAMETHASONE IVPB ONE (14:00)
[2018-01-26] MEDS ORDERED: ONDANSETRON IVPB ONE (14:00)
--- NOTE | 2018-01-26 14:16 | CP.PCM.PN ---
<Lara Ramos - Last Filed: 01/26/18 14:12> Subjective - Date & Time of Evaluation Date of Evaluation: 01/26/18 Time of Evaluation: 14:12 - Subjective Subjective: Gastroenterology Fellow/PGY6 Progress Note Patient ambulating in room. Notes improving abdominal pain with analgesic adjustments. Tolerating diet. Notes bowel movement yesterday. A 12-point review of systems negative except for as above. Objective - Vital Signs/Intake and Output Vital Signs (last 24 hours): Temp Pulse Resp BP Pulse Ox 97.5 F L 109 H 20 123/87 98 01/26/18 08:07 01/26/18 10:00 01/26/18 08:07 01/26/18 08:07 01/26/18 08:07 - Medications Medications: Current Medications Arformoterol Tartrate (Brovana) 15 mcg IH [id number] [facility] Last Admin: 01/26/18 07:45 Dose: 15 mcg Budesonide (Pulmicort Respules) 0.5 mg IH [id number] [facility] Last Admin: 01/26/18 07:45 Dose: 0.5 mg Dexamethasone (Decadron Inj) 4 mg IVP Q12 [facility] Last Admin: 01/26/18 10:09 Dose: 4 mg Fenofibrate (Tricor) 48 mg PO DAILY [facility] Last Admin: 01/26/18 10:12 Dose: 48 mg Fentanyl (Duragesic) 1 patch TD Q72H [facility] Last Admin: 01/24/18 10:37 Dose: 1 patch Home Med (Home Med) 1 unit PO DAILY [facility] Last Admin: 01/26/18 10:10 Dose: 1 unit Hydrochlorothiazide (Microzide) 12.5 mg PO DAILY [facility] Last Admin: 01/26/18 10:11 Dose: 12.5 mg Hydromorphone HCl (Dilaudid) 3 mg IVP Q2H PRN PRN Reason: Pain, severe (8-10) Last Admin: 01/26/18 03:00 Dose: 3 mg Ondansetron HCl 16 mg/Dexamethasone 12 mg/Diphenhydramine HCl 50 mg/Famotidine 20 mg/ Sodium Chloride 64 mls @ 192 mls/hr IVPB ONCE ONE Stop: 01/26/18 14:19 Irinotecan HCl 150 mg/ Sodium (Chloride) 257.5 mls @ 128.75 mls/hr IV ONCE ONE Stop: 01/26/18 15:59 Panitumumab 400 mg/ Sodium (Chloride) 120 mls @ 120 mls/hr IV ONCE ONE Stop: 01/26/18 14:59 Fluorouracil 2,000 mg/ Sodium (Chloride) 1,040 mls @ 22.609 mls/hr IVP ONCE ONE Stop: 01/28/18 11:59 Losartan Potassium (Cozaar) 100 mg PO DAILY [facility] Last Admin: 01/26/18 10:09 Dose: 100 mg Meclizine HCl (Antivert) 25 mg PO TID PRN PRN Reason: Dizziness Naproxen (Anaprox) 275 mg PO BID [facility] Last Admin: 01/26/18 10:13 Dose: Not Given Felodipine [ Felodipine Er] 10 Mg (Home Med) 1 tab PO DAILY [facility] Last Admin: 01/26/18 10:10 Dose: 1 tab Oxycodone/Acetaminophen (Percocet 10/325 Mg Tab) 1 tab PO Q4H PRN PRN Reason: Pain, moderate (4-7) Last Admin: 01/25/18 03:21 Dose: 1 tab Pantoprazole Sodium (Protonix Ec Tab) 40 mg PO 0600 [facility] Last Admin: 01/26/18 05:21 Dose: 40 mg Polyethylene Glycol (Miralax) 17 gm PO BID [facility] Last Admin: 01/26/18 10:12 Dose: Not Given Pregabalin (Lyrica) 75 mg PO BID [facility] Last Admin: 01/26/18 10:11 Dose: 75 mg - Labs Labs: 01/25/18 06:00 01/25/18 06:00 PT 11.5 SECONDS (9.4-12.5) 01/23/18 06:45 INR 1.00 01/23/18 06:45 APTT 31.5 Seconds (25.1-36.5) 01/23/18 06:45 - Constitutional Appears: Non-toxic, No Acute Distress - Head Exam Head Exam: ATRAUMATIC, NORMOCEPHALIC - Eye Exam Eye Exam: EOMI, PERRL. absent: Scleral icterus Pupil Exam: PERRL. absent: Miosis, Mydriatic - ENT Exam ENT Exam: Mucous Membranes Moist, Normal Oropharynx - Neck Exam Neck Exam: Full ROM, Normal Inspection - Respiratory Exam Respiratory Exam: Clear to Ausculation Bilateral. absent: Rales, Rhonchi, Wheezes - Cardiovascular Exam Cardiovascular Exam: RRR, +S1, +S2. absent: Gallop, Rubs - GI/Abdominal Exam GI & Abdominal Exam: Soft, Tenderness, Normal Bowel Sounds. absent: Distended, Firm, Guarding, Rigid, Organomegaly, Rebound Additional comments: B/L UQ tenderness to palpation - Extremities Exam Extremities Exam: Normal Inspection. 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 Active treatment of upper abdominal pain 2/2 to aggressive colon cancer with metastases and bilateral pleural effusions. POD3 (01/23) EGD -showing gastritis with no acute pathology identified. Plan: -follow up pain management recommendations -avoid NSAIDs -continue bowel regimen -continue PPI daily -pending Duplex U/S to rule out portal system thrombosis -will follow clinical course <Gracie Ellis V - Last Filed: 01/27/18 00:03> Objective - Vital Signs/Intake and Output Vital Signs (last 24 hours): Temp Pulse Resp BP Pulse Ox 97.9 F 117 H 18 128/91 H 98 01/26/18 17:18 01/26/18 18:00 01/26/18 17:18 01/26/18 17:18 01/26/18 17:18 Intake and Output: 01/26/18 01/27/18 18:59 06:59 Intake Total 1020 Balance 1020 - Medications Medications: Current Medications Arformoterol Tartrate (Brovana) 15 mcg IH [id number] [facility] Last Admin: 01/26/18 19:53 Dose: 15 mcg Budesonide (Pulmicort Respules) 0.5 mg IH [id number] [facility] Last Admin: 01/26/18 19:53 Dose: 0.5 mg Dexamethasone (Decadron Inj) 4 mg IVP Q12 [facility] Last Admin: 01/26/18 21:05 Dose: 4 mg Fenofibrate (Tricor) 48 mg PO DAILY [facility] Last Admin: 01/26/18 10:12 Dose: 48 mg Fentanyl (Duragesic) 1 patch TD Q72H [facility] Last Admin: 01/24/18 10:37 Dose: 1 patch Home Med (Home Med) 1 unit PO DAILY [facility] Last Admin: 01/26/18 10:10 Dose: 1 unit Hydrochlorothiazide (Microzide) 12.5 mg PO DAILY [facility] Last Admin: 01/26/18 10:11 Dose: 12.5 mg Hydromorphone HCl (Dilaudid) 3 mg IVP Q2H PRN PRN Reason: Pain, severe (8-10) Last Admin: 01/26/18 21:05 Dose: 3 mg Fluorouracil 2,000 mg/ Sodium (Chloride) 1,040 mls @ 22.609 mls/hr IVP ONCE ONE Stop: 01/28/18 11:59 Last Admin: 01/26/18 23:34 Dose: 22.609 mls/hr Losartan Potassium (Cozaar) 100 mg PO DAILY [facility] Last Admin: 01/26/18 10:09 Dose: 100 mg Meclizine HCl (Antivert) 25 mg PO TID PRN PRN Reason: Dizziness Morphine Sulfate (Morphine Extended Release Tab) 60 mg PO Q12 [facility] Last Admin: 01/26/18 21:58 Dose: 60 mg Felodipine [ Felodipine Er] 10 Mg (Home Med) 1 tab PO DAILY [facility] Last Admin: 01/26/18 10:10 Dose: 1 tab Oxycodone/Acetaminophen (Percocet 10/325 Mg Tab) 1 tab PO Q4H PRN PRN Reason: Pain, moderate (4-7) Pantoprazole Sodium (Protonix Ec Tab) 40 mg PO 0600 [facility] Last Admin: 01/26/18 05:21 Dose: 40 mg Polyethylene Glycol (Miralax) 17 gm PO BID [facility] Last Admin: 01/26/18 10:12 Dose: Not Given Pregabalin (Lyrica) 75 mg PO BID [facility] Last Admin: 01/26/18 18:35 Dose: 75 mg Sennosides (Senokot Tab) 17.2 mg PO HS [facility] - Labs Labs: 01/25/18 06:00 01/25/18 06:00 PT 11.5 SECONDS (9.4-12.5) 01/23/18 06:45 INR 1.00 01/23/18 06:45 APTT 31.5 Seconds (25.1-36.5) 01/23/18 06:45 Attending/Attestation - Attestation I have personally seen and examined this patient.: Yes I have fully participated in the care of the patient.: Yes I have reviewed all pertinent clinical information, including history, physical exam and plan: Yes Notes (Text): This is an addendum to GI progress report dictated by the GI Fellow.The patient was seen and examined earlier. Medical records, lab studies, imagings were reviewed. Last 24 hours events reviewed. Agreed with the above treatment plan as outlined in GI Fellow 's notes with the addition of the following 01/27/18 00:03
[2018-01-26] MEDS: Oxycodone/Acetaminophen 10/325 mg Tab PO PRN (18:17)
--- NOTE | 2018-01-26 18:31 | CP.PCM.PCO ---
Physician Communication Note - Physician Communication Note Physician Communication Note: Chemotherapy started today, rising CEA level compatible with rapid progress
[2018-01-26] MEDS ORDERED: LEUCOVORIN IV ONE (19:00)
[2018-01-26] MEDS ORDERED: oxyCODONE 15 mg Immediate Release Tab PO STA (21:35)
--- NOTE | 2018-01-26 22:17 | PN ---
DATE: 01/26/2018 PULMONARY PROGRESS NOTE REFERRING PHYSICIAN: Kaylen Yost MD. SUBJECTIVE: He is sitting up in a reclining chair. Friends and family at bedside. Has a severe pain and the whole day he had been okay, delayed his Dilaudid. Already given Dilaudid 3 mg, but still has a severe pain. Seen by Anesthesia today. Awaiting for GI consult for possible celiac block. There is no cough. No sputum production. No leg pain. No leg swelling. OBJECTIVE: GENERAL: Moderate to severe distress secondary to pain. VITAL SIGNS: Temperature is 98, heart rate is 117, respiratory rate is 18, blood pressure 129/91, pulse ox 98% on room air. HEENT: Moist mucous membrane. No ulcer or thrush noted. NECK: Supple. No JVD. LUNGS: Have decreased breath sounds on the bases. HEART: S1 and S2. ABDOMEN: Positive bowel sounds. Mild distention at left upper quadrant, right lower cage of the chest has tenderness. EXTREMITIES: No edema. NEUROLOGICAL: Awake and alert. Follows simple command. MEDICATIONS: He is on Antivert 25 mg three times a day p.r.n., Brovana inhaled twice a day, losartan 100 mg daily, Decadron 4 mg every 12 hours, Dilaudid 3 mg every 2 hours p.r.n., Duragesic patch every 72 hours, he was given fluorouracil 2000 mg IV today, Lyrica 75 mg twice a day, hydrochlorothiazide 12.5 mg daily, MiraLax 17 g twice a day, morphine extended release 60 mg every 12 hours, Protonix 40 mg daily, Pulmicort inhaled twice a day, TriCor 48 mg daily. LABORATORY DATA: Reviewed. No new lab is available. Blood culture and urine culture have been negative. IMPRESSION AND PLAN: Metastatic colon cancer with retroperitoneal lymphadenopathy, mediastinal adenopathy, chronic lung disease, bilateral pleural effusion, atelectasis, has intractable left lower chest and left upper quadrant pain where he received radiation already. Not responding to high-dose of pain medication. Being followed by surgical team. Also, seen by Oncology. Pain Management was consulted. Not much help. Most recently, seen by Anesthesia, recommended celiac . GI consult also called to help with celiac block. Continue supplemental oxygen, bronchodilator, gastric prophylaxis, pain management. Thank you and we will follow with you. Alysia Mishra MD [facility] # [id number]
[2018-01-27] MEDS: Pantoprazole 40 mg EC Tab PO SCH (06:11)
[2018-01-27 06:55] LABS: ALB/GLOB RATIO 1.4 (1.1-1.8); ALBUMIN 3.9 g/dL (3.0-4.8); ALT/SGPT 43 U/L (7-56); AST/SGOT 43 U/L (17-59); BLOOD UREA NITROGEN 20 mg/dL (7-21); CALCIUM 9.6 mg/dL (8.4-10.5); GFR NON-AFRICAN AMERICAN > 60
[2018-01-27 07:08] LABS: GRAN # 12.08 (1.4-6.5); GRAN % 84.6 % (50.0-68.0); HEMOGLOBIN 14.3 g/dL (14.0-18.0); LYMPH # 1.1 (1.2-3.4); LYMPH % 7.6 % (22.0-35.0); MEAN CELL VOLUME 92.5 fl (80.0-105.0); MEAN CORPUSCULAR HEMOGLOBIN 30.8 pg (25.0-35.0); MEAN CORPUSCULAR HGB CONC 33.3 g/dl (31.0-37.0); MEAN PLATELET VOLUME 9.7 fl (7.0-11.0); MONO # 1.1 (0.1-0.6); MONO % 7.8 % (1.0-6.0); RBC 4.65 10^6/uL (3.5-6.1); RED CELL DISTRIBUTION WIDTH 14.6 % (11.5-14.5); WHITE BLOOD COUNT 14.3 10^3/uL (4.5-11.0)
[2018-01-27] MEDS: Arformoterol 15 mcg/2 ml Inh Sol IH SCH ×2 (08:23→20:05)
[2018-01-27] MEDS: Budesonide 0.5 mg/2 ml Inhal Susp UD IH SCH ×2 (08:23→20:05)
--- NOTE | 2018-01-27 08:28 | CP.PCM.PN ---
<Lara Ramos - Last Filed: 01/27/18 08:25> Subjective - Date & Time of Evaluation Date of Evaluation: 01/27/18 Time of Evaluation: 08:25 - Subjective Subjective: Gastroenterology Fellow/PGY6 Progress Note Patient sitting in chair. Notes abdominal pain improved to pain scale 2 out of 10. Currently receiving chemotherapy. Tolerating diet. Admits to bowel movement yesterday. A 12-point review of systems negative except for as above. Objective - Vital Signs/Intake and Output Vital Signs (last 24 hours): Temp Pulse Resp BP Pulse Ox 97.5 F L 71 20 132/96 H 96 01/27/18 07:54 01/27/18 07:54 01/27/18 07:54 01/27/18 07:54 01/27/18 07:54 - Medications Medications: Current Medications Arformoterol Tartrate (Brovana) 15 mcg IH [id number] [facility] Last Admin: 01/26/18 19:53 Dose: 15 mcg Budesonide (Pulmicort Respules) 0.5 mg IH [id number] [facility] Last Admin: 01/26/18 19:53 Dose: 0.5 mg Dexamethasone (Decadron Inj) 4 mg IVP Q12 [facility] Last Admin: 01/26/18 21:05 Dose: 4 mg Fenofibrate (Tricor) 48 mg PO DAILY [facility] Last Admin: 01/26/18 10:12 Dose: 48 mg Fentanyl (Duragesic) 1 patch TD Q72H [facility] Last Admin: 01/24/18 10:37 Dose: 1 patch Home Med (Home Med) 1 unit PO DAILY [facility] Last Admin: 01/26/18 10:10 Dose: 1 unit Hydrochlorothiazide (Microzide) 12.5 mg PO DAILY [facility] Last Admin: 01/26/18 10:11 Dose: 12.5 mg Hydromorphone HCl (Dilaudid) 3 mg IVP Q2H PRN PRN Reason: Pain, severe (8-10) Last Admin: 01/26/18 21:05 Dose: 3 mg Fluorouracil 2,000 mg/ Sodium (Chloride) 1,040 mls @ 22.609 mls/hr IVP ONCE ONE Stop: 01/28/18 11:59 Last Admin: 01/26/18 23:34 Dose: 22.609 mls/hr Losartan Potassium (Cozaar) 100 mg PO DAILY [facility] Last Admin: 01/26/18 10:09 Dose: 100 mg Meclizine HCl (Antivert) 25 mg PO TID PRN PRN Reason: Dizziness Morphine Sulfate (Morphine Extended Release Tab) 60 mg PO Q12 [facility] Last Admin: 01/26/18 21:58 Dose: 60 mg Felodipine [ Felodipine Er] 10 Mg (Home Med) 1 tab PO DAILY [facility] Last Admin: 01/26/18 10:10 Dose: 1 tab Oxycodone/Acetaminophen (Percocet 10/325 Mg Tab) 1 tab PO Q4H PRN PRN Reason: Pain, moderate (4-7) Pantoprazole Sodium (Protonix Ec Tab) 40 mg PO 0600 [facility] Last Admin: 01/27/18 06:11 Dose: 40 mg Polyethylene Glycol (Miralax) 17 gm PO BID [facility] Last Admin: 01/26/18 10:12 Dose: Not Given Pregabalin (Lyrica) 75 mg PO BID [facility] Last Admin: 01/26/18 18:35 Dose: 75 mg Sennosides (Senokot Tab) 17.2 mg PO HS [facility] Last Admin: 01/26/18 23:00 Dose: Not Given - Labs Labs: 01/27/18 06:00 01/27/18 06:00 PT 11.5 SECONDS (9.4-12.5) 01/23/18 06:45 INR 1.00 01/23/18 06:45 APTT 31.5 Seconds (25.1-36.5) 01/23/18 06:45 - Constitutional Appears: Non-toxic, No Acute Distress - Head Exam Head Exam: ATRAUMATIC, NORMOCEPHALIC - Eye Exam Eye Exam: EOMI, PERRL. absent: Scleral icterus Pupil Exam: PERRL. absent: Miosis, Mydriatic - ENT Exam ENT Exam: Mucous Membranes Moist, Normal Oropharynx - Neck Exam Neck Exam: Full ROM, Normal Inspection - Respiratory Exam Respiratory Exam: Clear to Ausculation Bilateral. absent: Rales, Rhonchi, Wheezes - Cardiovascular Exam Cardiovascular Exam: RRR, +S1, +S2. absent: Gallop, Rubs - GI/Abdominal Exam GI & Abdominal Exam: Soft, Tenderness, Normal Bowel Sounds. absent: Distended, Firm, Guarding, Rigid, Organomegaly, Rebound Additional comments: B/L UQ tenderness of palpation - Extremities Exam Extremities Exam: Normal Inspection. 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 Active treatment of upper abdominal pain 2/2 to aggressive colon cancer with metastases and bilateral pleural effusions. POD4 (01/23) EGD -showing gastritis with no acute pathology identified. Plan: -pain management on board -on chemotherapy -continue bowel regimen -continue PPI daily -pending MRI chest and Duplex U/S -will follow clinical course <Gracie Ellis V - Last Filed: 01/27/18 23:53> Objective - Vital Signs/Intake and Output Vital Signs (last 24 hours): Temp Pulse Resp BP Pulse Ox 98.4 F 99 H 20 151/102 H 98 01/27/18 17:10 01/27/18 22:00 01/27/18 17:10 01/27/18 19:09 01/27/18 17:10 Intake and Output: 01/27/18 01/28/18 18:59 06:59 Intake Total 1551 Balance 1551 - Medications Medications: Current Medications Arformoterol Tartrate (Brovana) 15 mcg IH [id number] [facility] Last Admin: 01/27/18 20:05 Dose: 15 mcg Budesonide (Pulmicort Respules) 0.5 mg IH [id number] [facility] Last Admin: 01/27/18 20:05 Dose: 0.5 mg Dexamethasone (Decadron Inj) 4 mg IVP Q12 [facility] Last Admin: 01/27/18 21:09 Dose: 4 mg Enoxaparin Sodium (Lovenox) 50 mg SC Q12H [facility]; Protocol Last Admin: 01/27/18 19:03 Dose: 50 mg Fenofibrate (Tricor) 48 mg PO DAILY [facility] Last Admin: 01/27/18 10:07 Dose: 48 mg Fentanyl (Duragesic) 1 patch TD Q72H [facility] Last Admin: 01/27/18 10:01 Dose: 1 patch Home Med (Home Med) 1 unit PO DAILY [facility] Last Admin: 01/27/18 14:29 Dose: 1 unit Hydrochlorothiazide (Microzide) 12.5 mg PO DAILY [facility] Last Admin: 01/27/18 14:00 Dose: 12.5 mg Hydromorphone HCl (Dilaudid) 3 mg IVP Q2H PRN PRN Reason: Pain, severe (8-10) Last Admin: 01/27/18 19:41 Dose: 3 mg Fluorouracil 2,000 mg/ Sodium (Chloride) 1,040 mls @ 22.609 mls/hr IVP ONCE ONE Stop: 01/28/18 11:59 Last Admin: 01/26/18 23:34 Dose: 22.609 mls/hr Losartan Potassium (Cozaar) 100 mg PO DAILY [facility] Last Admin: 01/27/18 13:00 Dose: 100 mg Meclizine HCl (Antivert) 25 mg PO TID PRN PRN Reason: Dizziness Morphine Sulfate (Morphine Extended Release Tab) 60 mg PO Q12 [facility] Last Admin: 01/27/18 21:09 Dose: 60 mg Felodipine [ Felodipine Er] 10 Mg (Home Med) 1 tab PO DAILY [facility] Last Admin: 01/27/18 14:30 Dose: 1 tab Oxycodone/Acetaminophen (Percocet 10/325 Mg Tab) 1 tab PO Q4H PRN PRN Reason: Pain, moderate (4-7) Last Admin: 01/27/18 16:48 Dose: 1 tab Pantoprazole Sodium (Protonix Ec Tab) 40 mg PO 0600 [facility] Last Admin: 01/27/18 06:11 Dose: 40 mg Polyethylene Glycol (Miralax) 17 gm PO BID [facility] Last Admin: 01/27/18 17:14 Dose: Not Given Pregabalin (Lyrica) 75 mg PO BID [facility] Last Admin: 01/27/18 18:26 Dose: 75 mg Sennosides (Senokot Tab) 17.2 mg PO HS [facility] Last Admin: 01/27/18 21:17 Dose: Not Given - Labs Labs: 01/27/18 06:00 01/27/18 06:00 PT 11.5 SECONDS (9.4-12.5) 01/23/18 06:45 INR 1.00 01/23/18 06:45 APTT 31.5 Seconds (25.1-36.5) 01/23/18 06:45 Attending/Attestation - Attestation I have personally seen and examined this patient.: Yes I have fully participated in the care of the patient.: Yes I have reviewed all pertinent clinical information, including history, physical exam and plan: Yes Notes (Text): This is an addendum to GI progress report dictated by the GI Fellow.The patient was seen and examined earlier. Medical records, lab studies, imagings were reviewed. Last 24 hours events reviewed. Agreed with the above treatment plan as outlined in GI Fellow 's notes with the addition of the following 01/27/18 23:53
--- NOTE | 2018-01-27 08:35 | PN ---
DATE: 01/26/2018 SUBJECTIVE: The patient is a 57-year-old male. The patient was seen and examined at the bedside on 02/05/2018. Still in too much pain. Getting every type of pain medications, still is in pain, was awaiting for Dr. Hamlet Ontiveros, then today would consult with another pain medication, Anesthesiologist Dr. Gastelum. Seen by Dr. Gastelum. According to him, the patient needed celiac block and according to him, it should be done by GI. As this is suggested by the Anesthesiologist, length of time discussion done with Dr. Jazmin Rodriguez and Dr. Casper about the patient's immortality and even had discussion with nursing staff, No fever. No chills. No headache. No dizziness. PHYSICAL EXAMINATION VITAL SIGNS: Temperature 98, heart rate 117, respiratory rate 18, blood pressure 129/90 and pulse oximetry 98% on room air. HEENT: Head is normocephalic and atraumatic. Eyes: PERRLA. Extraocular muscles are intact. Conjunctivae clear. Nose patent. NECK: Supple. No carotid bruit. No JVD or thyromegaly. CHEST: Bilaterally symmetrical. HEART: S1 and S2 positive. LUNGS: Clear to auscultation. ABDOMEN: Soft. Bowel sounds positive. No organomegaly. EXTREMITIES: No edema. No cyanosis. NEUROLOGIC: The patient is awake and alert. Follow s simple commands. MEDICATIONS: Antivert, Brovana, losartan, Decadron, Dilaudid, Duragesic patch, fluorouracil, Lyrica, hydrochlorothiazide, morphine, and Pulmicort. LABORATORY DATA: We do not have recent labs today, but I reviewed old labs. ASSESSMENT AND PLAN: Mr. Kenan Soto is a 57 years old male with metastatic colon cancer with retroperitoneal lymphadenopathy, mediastinal adenopathy, chronic lung disease, bilateral pleural effusion, atelectasis, has intractable lower abdominal pain, left upper quadrant pain and he is already on radiation therapy. Not responding to high-dose of pain medication. Being followed by the surgical team. But according to them, they cannot do anything. GI is on the case. and Oncologist are on the case also. He need celiac block. GI will work on that. Continue supplemental oxygen, bronchodilator, gastric prophylaxis. Repeat labs. We will follow up. Kaylen Yost MD [facility]
[2018-01-27] MEDS: POLYETHYLENE GLYCOL 3350 17 GM/Dose PACKET PO SCH ×2 (10:07→17:14)
[2018-01-27] MEDS: Morphine 30 mg SR Tab PO SCH ×2 (10:07→21:09)
[2018-01-27] MEDS: Dexamethasone 4 mg/1 ml IVP SCH ×2 (13:54→21:09)
[2018-01-27] MEDS: FELODIPINE 10 MG PO SCH ×2 (13:55→14:30)
[2018-01-27] MEDS: TENOFOVIR PO SCH (14:29)
--- NOTE | 2018-01-27 16:06 | RAD ---
Date of service: 01/27/2018 HISTORY: COLON CANCER, SHORTNESS OF BREATH,PLEURAL EFFUSION COMPARISON: No prior. FINDINGS: LUNGS: No active pulmonary disease. PLEURA: Small bilateral pleural effusions showing no change CARDIOVASCULAR: No aortic atherosclerotic calcification present. Normal cardiac size. No pulmonary vascular congestion. OSSEOUS STRUCTURES: No significant abnormalities. VISUALIZED UPPER ABDOMEN: Normal. OTHER FINDINGS: None. IMPRESSION: No change in small bilateral pleural effusions
[2018-01-27] MEDS: Oxycodone/Acetaminophen 10/325 mg Tab PO PRN (16:48)
--- NOTE | 2018-01-27 18:36 | CP.PCM.PN ---
Subjective - Date & Time of Evaluation Date of Evaluation: 01/27/18 Time of Evaluation: 18:29 - Subjective Subjective: The patient's pain is much better, but is now c/o SOB on minimal exertion. The CXRay is not showing any progression of pleural effusions. No new cough, fever or chills. PE- Lungs-CTA 1+pedal edema Objective - Vital Signs/Intake and Output Vital Signs (last 24 hours): Temp Pulse Resp BP Pulse Ox 98.4 F 103 H 20 151/102 H 98 01/27/18 17:10 01/27/18 17:43 01/27/18 17:10 01/27/18 17:10 01/27/18 17:10 - Medications Medications: Current Medications Arformoterol Tartrate (Brovana) 15 mcg IH [id number] [facility] Last Admin: 01/27/18 08:23 Dose: 15 mcg Budesonide (Pulmicort Respules) 0.5 mg IH [id number] [facility] Last Admin: 01/27/18 08:23 Dose: 0.5 mg Dexamethasone (Decadron Inj) 4 mg IVP Q12 [facility] Last Admin: 01/27/18 13:54 Dose: 4 mg Enoxaparin Sodium (Lovenox) 50 mg SC Q12H [facility]; Protocol Fenofibrate (Tricor) 48 mg PO DAILY [facility] Last Admin: 01/27/18 10:07 Dose: 48 mg Fentanyl (Duragesic) 1 patch TD Q72H [facility] Last Admin: 01/27/18 10:01 Dose: 1 patch Furosemide (Lasix) 20 mg IVP ONCE ONE Stop: 01/27/18 18:21 Home Med (Home Med) 1 unit PO DAILY [facility] Last Admin: 01/27/18 14:29 Dose: 1 unit Hydrochlorothiazide (Microzide) 12.5 mg PO DAILY [facility] Last Admin: 01/27/18 14:00 Dose: 12.5 mg Hydromorphone HCl (Dilaudid) 3 mg IVP Q2H PRN PRN Reason: Pain, severe (8-10) Last Admin: 01/26/18 21:05 Dose: 3 mg Fluorouracil 2,000 mg/ Sodium (Chloride) 1,040 mls @ 22.609 mls/hr IVP ONCE ONE Stop: 01/28/18 11:59 Last Admin: 01/26/18 23:34 Dose: 22.609 mls/hr Losartan Potassium (Cozaar) 100 mg PO DAILY [facility] Last Admin: 01/27/18 13:00 Dose: 100 mg Meclizine HCl (Antivert) 25 mg PO TID PRN PRN Reason: Dizziness Morphine Sulfate (Morphine Extended Release Tab) 60 mg PO Q12 [facility] Last Admin: 01/27/18 10:07 Dose: Not Given Felodipine [ Felodipine Er] 10 Mg (Home Med) 1 tab PO DAILY [facility] Last Admin: 01/27/18 14:30 Dose: 1 tab Oxycodone/Acetaminophen (Percocet 10/325 Mg Tab) 1 tab PO Q4H PRN PRN Reason: Pain, moderate (4-7) Last Admin: 01/27/18 16:48 Dose: 1 tab Pantoprazole Sodium (Protonix Ec Tab) 40 mg PO 0600 [facility] Last Admin: 01/27/18 06:11 Dose: 40 mg Polyethylene Glycol (Miralax) 17 gm PO BID [facility] Last Admin: 01/27/18 17:14 Dose: Not Given Pregabalin (Lyrica) 75 mg PO BID [facility] Last Admin: 01/27/18 18:26 Dose: 75 mg Sennosides (Senokot Tab) 17.2 mg PO HS [facility] Last Admin: 01/26/18 23:00 Dose: Not Given - Labs Labs: 01/27/18 06:00 01/27/18 06:00 PT 11.5 SECONDS (9.4-12.5) 01/23/18 06:45 INR 1.00 01/23/18 06:45 APTT 31.5 Seconds (25.1-36.5) 01/23/18 06:45 Assessment and Plan (1) Colon cancer metastasized to intra-abdominal lymph node Assessment & Plan: Rapidly progressive signet cell adenocarcinoma, 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 The new SOB, possible etio- from pleural effusions, ?new PE. Unfortunately the patient cannot tolerate lying down for CTE or V/Q scan, will start Lovenox. Have discussed pros and cons of full dose anticoagulation with the patient and the family. Draw labs tomorrow and if the pain is better, will consider CTA. Dopplers of lower extremity, AM labs Status: Acute
[2018-01-27] MEDS: Enoxaparin 60 mg Syringe SC SCH (19:03)
[2018-01-27] MEDS: HYDROmorphone 2 mg/ml ISec IVP PRN (19:41)
--- NOTE | 2018-01-27 23:58 | PN ---
DATE: 01/27/2018 PULMONARY PROGRESS NOTE REFERRING PHYSICIAN: Kaylen Yost MD. SUBJECTIVE: He is sitting up in a reclining chair, still has a lot of pain in the left rib area, which is chronic. Denying any cough or sputum production. Gets short of breath. No nausea. No vomiting. No diarrhea. No leg pain or leg swelling. OBJECTIVE: GENERAL: In no acute distress. VITAL SIGNS: Temperature is 98, heart rate is 103, respiratory rate is 20, blood pressure 151/102, and pulse ox 98% on room air. HEENT: Moist mucous membranes. No ulcer or thrush noted. NECK: Supple. No JVD. LUNGS: Decreased breath sounds at the both bases. HEART: S1 and S2. ABDOMEN: Positive bowel sounds. Left upper quadrant tenderness. EXTREMITIES: There is no edema. NEUROLOGIC: Awake, alert, and follows simple commands. MEDICATIONS: He is on meclizine 25 mg three times a day p.r.n., Brovana inhaled twice a day, losartan 100 mg daily, Decadron 4 mg every 12 hours, Dilaudid 3 mg every 2 hours p.r.n., Duragesic patch every 72 hours, felodipine one tab daily, fluorouracil 2000 IV, Lovenox mg every 12 hours, Lyrica 75 mg twice a day, hydrochlorothiazide 25 mg daily, MiraLax 17 g twice a day, morphine extended release 60 mg every 12 hours, Percocet 10/325 one tablet every 4 hours p.r.n., Protonix 40 mg daily, Pulmicort inhaled twice a day, Senokot p.r.n. basis, and TriCor daily. LABORATORY DATA: Shows hemoglobin 14.3, hematocrit 43, WBC 14.3, and platelet count 135,000. Fibrinogen is 193. Sodium 138, potassium 4.6, chloride 102, bicarbonate 27, BUN 20, creatinine 0.9. Glucose is 154. Calcium is 9.6. AST 43, ALT 43. Alkaline phosphatase is 65. Albumin is 3.9. Carcinoembryonic antigen is 248. Amylase is 54. Lipase is 37. DIAGNOSTIC DATA: Microbiology; blood culture, there is no growth. Chest x-ray done this evening shows no change in small bilateral pleural effusion. IMPRESSION AND PLAN: Metastatic colon cancer with retroperitoneal lymphadenopathy, mediastinal adenopathy, chronic lung disease, bilateral pleural effusion, atelectasis, intractable left upper and left lower chest area pain, status post radiation therapy, getting chemotherapy, being followed by Hematology and Oncology. Gastrointestinal consult has been called with Dr. Ellis for possible celiac block. Spoke to nursing staff to give call to Dr. Ellis if he can schedule for celiac block. Continue high dose of sedative. Try to make patient comfortable. Continue supplemental oxygen. Overall, poor prognosis. Continue with supportive care. Thank you and we will follow with you. Alysia Mishra MD
--- NOTE | 2018-01-28 02:08 | PN ---
DATE: 01/27/2018 SUBJECTIVE: The patient seen and examined at the bedside. was sitting at the bedside also, looked a bit comfortable. No fever. No chills. No nausea, vomiting, or diarrhea. Abdominal pain is a little bit better, very shortness of breath on minimal exertion. PHYSICAL EXAMINATION VITAL SIGNS: Temperature 98.4, pulse 103, respiratory rate 20, blood pressure 150/102, and pulse oximetry 98. HEENT: Head normocephalic, atraumatic. Eyes; PERRLA. Extraocular muscles are intact. Conjunctivae clear. Nose patent. NECK: Supple. No carotid bruit. No JVD or thyromegaly. CHEST: Bilaterally symmetrical. HEART: S1 and S2 positive. LUNGS: Clear to auscultation. ABDOMEN: Soft. Bowel sounds present. No organomegaly. EXTREMITIES: No edema. No cyanosis. NEUROLOGIC: The patient is awake, alert, moving all four extremities. No focal deficits. MEDICATIONS: Brovana, Pulmicort, Decadron, Lovenox, TriCor, Duragesic patch, Lasix, hydrochlorothiazide, hydromorphone, losartan, meclizine, and oxycodone. LABORATORY DATA: White blood cells 14.3, hemoglobin 14.3, hematocrit noted , and platelets 135,000. Sodium 138, potassium 4.6, BUN 20, creatinine 0.9, glucose 154. ASSESSMENT AND PLAN: Mr. Brittany Grayson is a 57-year-old male with leukocytosis, hyperglycemia, colon cancer with metastases to the intraabdominal lymph nodes, rapidly progressive signet cell adenocarcinoma of colon with metastases to several lymph nodes, getting palliative chemotherapy, pleural effusion, rule out PE, but it is hard for the patient to lie down on the back of CT or V/Q scan. Oncologist started Lovenox. Discussion done with the family about full anticoagulation. Stress test is done according to Kamaljit Min. No change in small pleural effusion, seen by decontamination technician. Hypertension and gastritis. Pain management is on the board getting chemotherapy. Continue PPI. According to pain management, the patient needs celiac block, either Gastroenterology or Pain Management will do that. Discussed with the . All questions answered. We will follow up. Kaylen Yost MD [facility] # [id number] [place]
[2018-01-28] MEDS: Enoxaparin 60 mg Syringe SC SCH ×2 (05:44→17:43)
[2018-01-28] MEDS: Pantoprazole 40 mg EC Tab PO SCH (05:44)
[2018-01-28 06:11] LABS: HEMOGLOBIN 13.9 g/dL (14.0-18.0); MEAN CELL VOLUME 92.3 fl (80.0-105.0); MEAN CORPUSCULAR HEMOGLOBIN 30.8 pg (25.0-35.0); MEAN CORPUSCULAR HGB CONC 33.3 g/dl (31.0-37.0); MEAN PLATELET VOLUME 9.8 fl (7.0-11.0); RBC 4.52 10^6/uL (3.5-6.1); RED CELL DISTRIBUTION WIDTH 14.3 % (11.5-14.5); WHITE BLOOD COUNT 9.7 10^3/uL (4.5-11.0)
[2018-01-28 06:13] LABS: INR 0.96; PARTIAL THROMBOPLASTIN TIME 31.7 Seconds (25.1-36.5)
[2018-01-28 06:20] LABS: BLOOD UREA NITROGEN 23 mg/dL (7-21); GFR NON-AFRICAN AMERICAN > 60
[2018-01-28] MEDS: HYDROmorphone 2 mg/ml ISec IVP PRN (08:00)
[2018-01-28] MEDS: Budesonide 0.5 mg/2 ml Inhal Susp UD IH SCH ×2 (08:19→20:20)
[2018-01-28] MEDS: Arformoterol 15 mcg/2 ml Inh Sol IH SCH ×2 (08:19→20:19)
[2018-01-28] MEDS: POLYETHYLENE GLYCOL 3350 17 GM/Dose PACKET PO SCH ×2 (09:06→17:10)
[2018-01-28] MEDS: Morphine 30 mg SR Tab PO SCH ×2 (10:15→21:05)
[2018-01-28] MEDS: FELODIPINE 10 MG PO SCH (10:16)
[2018-01-28] MEDS: Dexamethasone 4 mg/1 ml IVP SCH (10:16)
[2018-01-28] MEDS: TENOFOVIR PO SCH (10:16)
--- NOTE | 2018-01-28 12:33 | CP.PCM.PN ---
<Moseh Frausto - Last Filed: 01/28/18 12:34> Subjective - Date & Time of Evaluation Date of Evaluation: 01/28/18 Time of Evaluation: 08:35 - Subjective Subjective: PGY6 GI Fellow Progress Note Patient seen and examined bedside this morning. The patient continues to have abdominal pain, though lessened in intensity. Poor appetite. No events overnight. 12 system ROS performed and negative except where stated Objective - Vital Signs/Intake and Output Vital Signs (last 24 hours): Temp Pulse Resp BP Pulse Ox 97.7 F 91 H 20 120/84 96 01/28/18 06:00 01/28/18 09:08 01/28/18 06:00 01/28/18 06:00 01/28/18 06:00 Intake and Output: 01/28/18 01/28/18 06:59 18:59 Intake Total 564 Output Total 475 Balance 89 - Medications Medications: Current Medications Arformoterol Tartrate (Brovana) 15 mcg IH [id number] [facility] Last Admin: 01/28/18 08:19 Dose: Not Given Budesonide (Pulmicort Respules) 0.5 mg IH [id number] [facility] Last Admin: 01/28/18 08:19 Dose: Not Given Dexamethasone (Decadron Inj) 4 mg IVP Q12 [facility] Last Admin: 01/28/18 10:16 Dose: 4 mg Enoxaparin Sodium (Lovenox) 50 mg SC Q12H [facility]; Protocol Last Admin: 01/28/18 05:44 Dose: 50 mg Fenofibrate (Tricor) 48 mg PO DAILY [facility] Last Admin: 01/28/18 10:16 Dose: 48 mg Fentanyl (Duragesic) 1 patch TD Q72H [facility] Last Admin: 01/27/18 10:01 Dose: 1 patch Home Med (Home Med) 1 unit PO DAILY [facility] Last Admin: 01/28/18 10:16 Dose: 1 unit Hydrochlorothiazide (Microzide) 12.5 mg PO DAILY [facility] Last Admin: 01/28/18 10:15 Dose: 12.5 mg Hydromorphone HCl (Dilaudid) 3 mg IVP Q2H PRN PRN Reason: Pain, severe (8-10) Last Admin: 01/28/18 08:00 Dose: 3 mg Losartan Potassium (Cozaar) 100 mg PO DAILY [facility] Last Admin: 01/28/18 10:16 Dose: 100 mg Meclizine HCl (Antivert) 25 mg PO TID PRN PRN Reason: Dizziness Morphine Sulfate (Morphine Extended Release Tab) 60 mg PO Q12 [facility] Last Admin: 01/28/18 10:15 Dose: 60 mg Felodipine [ Felodipine Er] 10 Mg (Home Med) 1 tab PO DAILY [facility] Last Admin: 01/28/18 10:16 Dose: 1 tab Oxycodone/Acetaminophen (Percocet 10/325 Mg Tab) 1 tab PO Q4H PRN PRN Reason: Pain, moderate (4-7) Last Admin: 01/27/18 16:48 Dose: 1 tab Pantoprazole Sodium (Protonix Ec Tab) 40 mg PO 0600 [facility] Last Admin: 01/28/18 05:44 Dose: 40 mg Polyethylene Glycol (Miralax) 17 gm PO BID [facility] Last Admin: 01/28/18 09:06 Dose: Not Given Pregabalin (Lyrica) 75 mg PO BID [facility] Last Admin: 01/28/18 10:15 Dose: 75 mg Sennosides (Senokot Tab) 17.2 mg PO HS [facility] Last Admin: 01/27/18 21:17 Dose: Not Given - Labs Labs: 01/28/18 05:40 01/28/18 05:40 PT 11.0 SECONDS (9.4-12.5) 01/28/18 05:40 INR 0.96 01/28/18 05:40 APTT 31.7 Seconds (25.1-36.5) 01/28/18 05:40 - Constitutional Appears: No Acute Distress, Chronically Ill - Eye Exam Eye Exam: EOMI, PERRL - ENT Exam ENT Exam: Mucous Membranes Moist - Respiratory Exam Respiratory Exam: Clear to Ausculation Bilateral. absent: Rales, Rhonchi, Wheezes - Cardiovascular Exam Cardiovascular Exam: RRR, +S1, +S2 - GI/Abdominal Exam GI & Abdominal Exam: Soft, Tenderness, Normal Bowel Sounds. 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 -Pleural effusions Plan: -Patient on palliative chemotherapy - oncology following -Ongoing pain management -PPI daily as ordered -Bowel regimen recommended - Miralax/Senna ordered -Symptom management -LE duplex pending <Gracie Ellis V - Last Filed: 01/29/18 23:50> Objective - Vital Signs/Intake and Output Vital Signs (last 24 hours): Temp Pulse Resp BP Pulse Ox 98 F 99 H 20 127/98 H 98 01/29/18 20:00 01/29/18 22:00 01/29/18 20:00 01/29/18 20:00 01/29/18 20:00 Intake and Output: 01/29/18 01/30/18 18:59 06:59 Intake Total 1840 Output Total 900 Balance 940 - Medications Medications: Current Medications Arformoterol Tartrate (Brovana) 15 mcg IH [id number] [facility] Last Admin: 01/29/18 19:56 Dose: 15 mcg Budesonide (Pulmicort Respules) 0.5 mg IH [id number] [facility] Last Admin: 01/29/18 19:56 Dose: 0.5 mg Dexamethasone (Decadron) 4 mg PO DAILY [facility] Enoxaparin Sodium (Lovenox) 50 mg SC Q12H [facility]; Protocol Last Admin: 01/29/18 17:56 Dose: 50 mg Fenofibrate (Tricor) 48 mg PO DAILY [facility] Last Admin: 01/29/18 09:07 Dose: 48 mg Fentanyl (Duragesic) 1 patch TD Q72H [facility] Last Admin: 01/27/18 10:01 Dose: 1 patch Home Med (Home Med) 1 unit PO DAILY [facility] Last Admin: 01/29/18 09:14 Dose: 1 unit Hydrochlorothiazide (Microzide) 12.5 mg PO DAILY [facility] Last Admin: 01/29/18 09:08 Dose: 12.5 mg Losartan Potassium (Cozaar) 100 mg PO DAILY [facility] Last Admin: 01/29/18 09:08 Dose: 100 mg Morphine Sulfate (Morphine Extended Release Tab) 60 mg PO Q12 [facility] Last Admin: 01/29/18 22:12 Dose: 60 mg Felodipine [ Felodipine Er] 10 Mg (Home Med) 1 tab PO DAILY [facility] Last Admin: 01/29/18 09:14 Dose: 1 tab Oxycodone/Acetaminophen (Percocet 10/325 Mg Tab) 1 tab PO Q4H PRN PRN Reason: Pain, moderate (4-7) Last Admin: 01/29/18 16:16 Dose: 1 tab Pantoprazole Sodium (Protonix Ec Tab) 40 mg PO 0600 [facility] Last Admin: 01/29/18 05:42 Dose: 40 mg Polyethylene Glycol (Miralax) 17 gm PO BID [facility] Last Admin: 01/29/18 11:20 Dose: 17 gm Pregabalin (Lyrica) 75 mg PO BID [facility] Last Admin: 01/29/18 17:08 Dose: 75 mg Sennosides (Senokot Tab) 17.2 mg PO HS [facility] Last Admin: 01/29/18 22:13 Dose: Not Given - Labs Labs: 01/28/18 05:40 01/28/18 05:40 PT 11.0 SECONDS (9.4-12.5) 01/28/18 05:40 INR 0.96 01/28/18 05:40 APTT 31.7 Seconds (25.1-36.5) 01/28/18 05:40 Attending/Attestation - Attestation I have personally seen and examined this patient.: Yes I have fully participated in the care of the patient.: Yes I have reviewed all pertinent clinical information, including history, physical exam and plan: Yes
--- NOTE | 2018-01-29 00:47 | PN ---
DATE: 01/28/2018 PULMONARY PROGRESS NOTE REFERRING PHYSICIAN: Kaylen Yost MD SUBJECTIVE: He is sitting up on the reclining chair. Pain is under control today. Seen by pain management, GI, also Anesthesia to see if any one can help do the nerve block. Apparently, seems like no consensus of any injectable to help him, but continue high dose of opiates. Gets short of breath with exertion, cannot lie flat. No nausea. No vomiting. No diarrhea. No leg pain. No leg swelling. OBJECTIVE: GENERAL: In no acute distress. VITAL SIGNS: Temperature is 98, heart rate is 99, respiratory rate is 20, blood pressure 117/81, and pulse ox 96% on room air. HEENT: Moist mucous membranes. No ulcer or thrush noted. NECK: Supple. No JVD. LUNGS: Decreased breath sounds at the both bases. HEART: S1 and S2. ABDOMEN: Soft, left upper quadrant tenderness. EXTREMITIES: There is no edema. NEUROLOGIC: Awake, alert, and follows simple commands. MEDICATIONS: He is on Antivert 25 mg three times a day p.r.n., Brovana inhaled twice a day, Cozaar 100 mg daily, Decadron 4 mg every 12 hours, Dilaudid 3 mg every 2 hours p.r.n., Duragesic patch to affected area, Lovenox mg subcu 12 hours, Lyrica 75 mg twice a day, MiraLax 17 g twice a day, morphine extended release 60 mg every 12 hours, Percocet 10/325 one tab every 4 hours p.r.n., Protonix 40 mg daily, Pulmicort inhaled twice a day, Senokot p.r.n. basis, and TriCor 48 mg p.o. daily. LABORATORY DATA: Shows hemoglobin 13.9, hematocrit 41.7, WBC 9.7, and platelet count is 136,000. INR 0.97. PTT 32. Sodium 136, potassium , chloride 100, bicarbonate 30, BUN 23, creatinine 0.6. Glucose 212. Calcium is 9. Microbiology; blood culture and urine culture, there is no growth. IMPRESSION AND PLAN: Metastatic colon cancer with retroperitoneal lymphadenopathy, mediastinal adenopathy, left upper quadrant and left lower chest area pain requiring radiation therapy without much benefit, has chronic lung disease, bilateral pleural effusion, atelectasis. Overall, poor prognosis. Received chemotherapy yesterday. As I mentioned in subjective, the patient is seen by pain management, also seen by Gastroenterology and Anesthesia. Question was if nerve block will help and second was if celiac block will help, seems like so far there is no consensus in the speciality to decide what will work. For now, on high dose of opiates to manage his pain and make him comfortable. Continue bronchodilator. Fall precaution. Spoke to family. Thank you, and we will follow with you. Alysia Mishra MD
--- NOTE | 2018-01-29 05:29 | PN ---
DATE: 01/28/2018 SUBJECTIVE: The patient is a 57-year-old male. The patient was seen and examined at the bedside on 01/28/2018. The patient is a little bit better. Family is around. No fever, no chills. No nausea, vomiting, diarrhea. No hematuria or hematochezia. No headache or dizziness. Getting high doses of opiates, got chemotherapy, and steroids. PHYSICAL EXAMINATION: VITAL SIGNS: Temperature is 98, heart rate 99, respiratory rate 20, blood pressure 170/80, pulse oximetry noted on room air. HEENT: Head normocephalic, atraumatic. Eyes PERRLA. Extraocular muscles intact. Conjunctivae clear. Nose patent. Mucous membranes moist. NECK: Supple. No carotid bruits. No JVD or thyromegaly. CHEST: Bilaterally symmetrical. HEART: S1, S2 positive. LUNGS: Clear to auscultation. ABDOMEN: Soft. Bowel sounds positive. No organomegaly. EXTREMITIES: No edema, no cyanosis. NEUROLOGIC: Patient is awake, alert. Moving all 4 extremities. No focal deficits. LABORATORY DATA: Hemoglobin 13.9, hematocrit 41.7, white blood cells 9.7, platelets 136,000. Sodium 136, BUN 23, creatinine 0.6, glucose 212. Calcium 9. MEDICATIONS: Antivert, Brovana, Cozaar, Decadron, Dilaudid, Duragesic patch, Lovenox, Lyrica, MiraLax, morphine, Percocet, Protonix, Pulmicort, Senokot, TriCor. ASSESSMENT AND PLAN: Mr. Ramirez appear with multiple medical problems, mainly metastatic colon cancer with retroperitoneal lymphadenopathy, mediastinal lymphadenopathy, left upper quadrant and left lower quadrant abdominal pain, requiring radiation therapy and chemotherapy, COPD, bilateral pleural effusion, atelectasis. Overall, prognosis is poor. Received chemotherapy yesterday. The patient is on high dose of narcotics. Seen by parish nurse and anesthesiologist. Needs some type of nerve block, otherwise he is getting high dose of steroids and high dose of narcotics. GI, DVT prophylaxis. Bedside physical therapy. We will follow up. Kaylen Yost MD [facility] # [id number] [place]
[2018-01-29] MEDS: Enoxaparin 60 mg Syringe SC SCH ×2 (05:34→17:56)
[2018-01-29] MEDS: Dexamethasone 4 mg/1 ml IVP SCH ×2 (05:34→17:07)
[2018-01-29] MEDS: Pantoprazole 40 mg EC Tab PO SCH (05:42)
[2018-01-29] MEDS: Budesonide 0.5 mg/2 ml Inhal Susp UD IH SCH ×2 (08:10→19:56)
[2018-01-29] MEDS: Arformoterol 15 mcg/2 ml Inh Sol IH SCH ×2 (08:10→19:56)
[2018-01-29] MEDS: Morphine 30 mg SR Tab PO SCH ×2 (09:05→22:12)
[2018-01-29] MEDS: TENOFOVIR PO SCH (09:14)
[2018-01-29] MEDS: FELODIPINE 10 MG PO SCH (09:14)
[2018-01-29] MEDS: POLYETHYLENE GLYCOL 3350 17 GM/Dose PACKET PO SCH (11:20)
[2018-01-29] MEDS: Oxycodone/Acetaminophen 10/325 mg Tab PO PRN (16:16)
--- NOTE | 2018-01-29 16:28 | US ---
HISTORY: Leg pain and swelling. Evaluate for DVT PHYSICIAN(S): Victor Manuel Wilson MD. TECHNIQUE: Duplex sonography and color-flow Doppler with graded compression were used to evaluate the deep venous systems of both lower extremities. FINDINGS: The visualized deep venous systems of both lower extremities are sonographically normal and compressible. Normal wave forms and augmentation are seen. There is no sonographic evidence for deep venous thrombosis in the visualized segments of both lower extremities. IMPRESSION: No sonographic evidence for deep venous thrombosis in the visualized segments of both lower extremities.
[2018-01-29 17:26] VITALS: RESP 20
--- NOTE | 2018-01-29 23:39 | PN ---
DATE: 01/29/2018 SUBJECTIVE: The patient is a 57-year-old male. The patient was seen and examined on the bedside on 01/29/2018. No fever, no chills. No nausea, vomiting, or diarrhea. No hematuria or hematochezia. No headache or dizziness. Abdominal pain is better. Sitting on the chair. and sister were sitting on the bedside. PHYSICAL EXAMINATION VITAL SIGNS: Temperature 97.5, pulse 102, blood pressure 132/96 and respiratory rate is 20. HEENT: Head normocephalic, atraumatic. Eyes PERRLA. Extraocular muscles intact. Conjunctivae clear. Nose patent. Mucous membrane moist. NECK: Supple. No carotid bruit. No JVD or thyromegaly. CHEST: Bilaterally symmetrical. HEART: S1 and S2 positive. LUNGS: Clear to auscultation. ABDOMEN: Soft. Tender on deep palpation. EXTREMITIES: No edema. No cyanosis. NEUROLOGICAL: The patient is awake and alert. Moving all 4 extremities. No focal deficits. MEDICATIONS: Brovana, Cozaar, Decadron, he was taking 4 mg, I changed it to 3 mg, Duragesic patch, felodipine, Lovenox for DVT prophylaxis, hydrochlorothiazide, MiraLax, morphine sulfate Extended Release, Percocet, Protonix, Pulmicort, Senokot, and TriCor. ASSESSMENT AND PLAN: Mr. Kenan Soto is a 57-year-old male with hypertriglyceridemia, constipation, getting stool softener; intractable abdominal pain due to colon cancer with metastasis. Getting different types of narcotics. Getting Lovenox for deep venous thrombosis prophylaxis. The patient with retroperitoneal lymphadenopathy, mediastinal adenopathy, left upper quadrant and left lower quadrant chest pain, requiring radiation therapy, may be patient will respond, bilateral pleural effusion and atelectasis. Overall, prognosis is poor. Received chemotherapy yesterday. Gastrointestinal prophylaxis and deep venous thrombosis prophylaxis. All questions were answered. Repeat labs. We will follow up. Kaylen Yost MD
[2018-01-30 00:18] VITALS: TEMP 97.9
[2018-01-30] MEDS: Enoxaparin 60 mg Syringe SC SCH (06:15)
[2018-01-30] MEDS: Pantoprazole 40 mg EC Tab PO SCH (06:17)
[2018-01-30 07:15] VITALS: BP 140/98; O2SAT 98
[2018-01-30] MEDS: Budesonide 0.5 mg/2 ml Inhal Susp UD IH SCH (07:50)
[2018-01-30] MEDS: Arformoterol 15 mcg/2 ml Inh Sol IH SCH (07:50)
--- NOTE | 2018-01-30 08:26 | PN ---
DATE: 01/29/2018 PULMONARY PROGRESS NOTE REFERRING PHYSICIAN: Kaylen Yost MD SUBJECTIVE: He is out of bed to reclining chair, and family at bedside, feels much better today. Pain is more under control. Short of breath with exertion. No chest pain. No nausea. No leg pain or leg swelling. Having bowel movement. No constipation. Left upper quadrant still has some pain. OBJECTIVE: GENERAL: No acute distress. VITAL SIGNS: Temp is 98, heart rate is 102, respiratory rate is 20, blood pressure 132/96, pulse ox of 97% on room air. HEENT: Moist mucous membranes. No ulcer or thrush noted. NECK: Supple. No JVD. LUNGS: Have decreased breath sounds at the bases. HEART: S1 and S2. ABDOMEN: Soft. Left upper quadrant tenderness. EXTREMITIES: There is no edema. NEUROLOGIC: Awake and alert. Follows simple command. MEDICATIONS He is on Antivert 25 mg 3 times a day p.r.n., Brovana inhaled twice a day, Cozaar 100 mg daily, Decadron 4 mg every 12 hours, Dilaudid 3 mg every 2 hours p.r.n., Duragesic patch every 72 hours, Lovenox is 50 mg subcu twice a day, Lyrica is 75 mg twice a day, hydrochlorothiazide 12.5 mg daily, MiraLax 17 g twice a day, morphine sulfate extended release 60 mg twice a day, Percocet 10/325 one tab every 4 hours p.r.n. for pain, Protonix 40 mg daily, Pulmicort inhaled twice a day, and TriCor 48 mg daily. LABORATORY DATA: Reviewed and no new lab is available since yesterday. Microbiology: Blood culture and urine culture have been negative. IMPRESSION AND PLAN: Metastatic colon cancer with retroperitoneal lymphadenopathy, mediastinal adenopathy, left upper quadrant and left lower chest area severe pain, history of radiation in that area in the past, chronic lung disease, bilateral pleural effusion, atelectasis. Spoke to the patient and family at bedside, also spoke to nursing staff. On present regimen, he is overall doing pretty well, pain is manageable. Continue incentive spirometer, p.r.n. bronchodilator. Gastric and deep venous thrombosis prophylaxis. The patient is started on therapeutic doses of anticoagulation. Thank you and we will follow with you. Alysia Mishra MD [facility] # [id number]
[2018-01-30] MEDS: Morphine 30 mg SR Tab PO SCH (09:21)
[2018-01-30] MEDS: POLYETHYLENE GLYCOL 3350 17 GM/Dose PACKET PO SCH (09:23)
[2018-01-30] MEDS: FELODIPINE 10 MG PO SCH (09:23)
[2018-01-30] MEDS: TENOFOVIR PO SCH (09:24)
[2018-01-30 11:11] LABS: GRAN # 6.62 (1.4-6.5); GRAN % 90.5 % (50.0-68.0); HEMOGLOBIN 13.9 g/dL (14.0-18.0); LYMPH # 0.5 (1.2-3.4); LYMPH % 7.2 % (22.0-35.0); MEAN CELL VOLUME 93.1 fl (80.0-105.0); MEAN CORPUSCULAR HGB CONC 33.3 g/dl (31.0-37.0); MEAN PLATELET VOLUME 9.4 fl (7.0-11.0); MONO # 0.2 (0.1-0.6); MONO % 2.3 % (1.0-6.0); PLATELET COUNT 137 10^3/uL (120.0-450.0); RBC 4.48 10^6/uL (3.5-6.1); RED CELL DISTRIBUTION WIDTH 14.1 % (11.5-14.5); WHITE BLOOD COUNT 7.3 10^3/uL (4.5-11.0)
[2018-01-30 11:17] LABS: INR 0.97; PARTIAL THROMBOPLASTIN TIME 40.8 Seconds (25.1-36.5); PROTHROMBIN TIME 11.2 SECONDS (9.4-12.5)
[2018-01-30 11:29] LABS: ALB/GLOB RATIO 1.4 (1.1-1.8); ALBUMIN 3.5 g/dL (3.0-4.8); ALT/SGPT 37 U/L (7-56); AST/SGOT 28 U/L (17-59); BLOOD UREA NITROGEN 17 mg/dL (7-21); CALCIUM 8.8 mg/dL (8.4-10.5); GFR NON-AFRICAN AMERICAN > 60
[2018-01-30 12:12] LABS: LYMPHOCYTE 3 % (22.0-35.0); NEUTROPHIL 97 % (50.0-70.0); PLATELET ESTIMATE NORMAL (NORMAL)
[2018-01-30 14:27] VITALS: PULSE 89
--- NOTE | 2018-01-30 19:14 | PN ---
DATE: 01/30/2018 PULMONARY PROGRESS NOTE REFERRING PHYSICIAN: Kaylen Yost MD. SUBJECTIVE: He is sitting up in a reclining chair. Night was unremarkable. Feels better. Pain is pretty much under control with the present pain management. Short of breath with exertion. No cough. No sputum production. Left upper quadrant pain. No constipation. No leg pain or leg swelling. PHYSICAL EXAMINATION: GENERAL: In no acute distress. VITAL SIGNS: Temperature is 98, heart rate is 89, respiratory rate is 20, blood pressure 140/98, pulse ox 98% on 2 liters cannula. HEENT: Moist mucous membranes. No ulcer or thrush noted. NECK: Supple. No JVD. LUNGS: Have decreased breath at the bases. HEART: S1 and S2. ABDOMEN: Soft, nontender, nondistended. Has a left upper quadrant tenderness. EXTREMITIES: There is no edema. NEUROLOGIC: Awake, alert, and follows simple command. MEDICATIONS: Reviewed. No new change in medication reported since yesterday. LABORATORY DATA: Shows hemoglobin 13.9, hematocrit 41.7, WBC 7.3, platelet is 134. INR 0.97, PTT is 41. Sodium 137, potassium 3.8, chloride 101, bicarbonate 30, BUN 17, creatinine 0.6, glucose 212, calcium is 8.8. AST 28, ALT 37, alk phos is 66. Albumin is 3.5. Microbiology: Blood culture and urine culture, there is no growth. IMPRESSION AND PLAN: Metastatic colon cancer with retroperitoneal lymphadenopathy, mediastinal node, left lower chest, and left upper quadrant, chronic pain, had been on radiation therapy in the left upper quadrant area; chronic lung disease; bilateral pleural effusion; atelectasis. Spoke to nursing staff. Continue pain management, bronchodilator, gastric prophylaxis, DVT prophylaxis. Continue supportive care. Thank you and we will follow with you. Alysia Mishra MD
== END 2018-01-30 17:32 | disposition home or self-care (01) | DRG 948 ==
LOC: ED 15:09 → ERH 18:46 → 3RNO 21:58 → OBSVTOIN 01-23 22:59
PROVIDERS: ADMIT Internal Medicine; ATTEND Internal Medicine
PROC: 0DJ08ZZ Inspection of Upper Intestinal Tract, Via Natural or Artificial Opening Endoscopic (ICD-10-PCS; principal; 2018-01-23 15:15)
DX: G89.3 Neoplasm related pain (acute) (chronic) (principal); C18.9 Malignant neoplasm of colon, unspecified; C77.2 Secondary and unspecified malignant neoplasm of intra-abdominal lymph nodes; J90 Pleural effusion, not elsewhere classified; J98.11 Atelectasis; D72.829 Elevated white blood cell count, unspecified; E78.1 Pure hyperglyceridemia; E83.51 Hypocalcemia; E87.6 Hypokalemia; E87.8 Other disorders of electrolyte and fluid balance, not elsewhere classified; F17.210 Nicotine dependence, cigarettes, uncomplicated; I10 Essential (primary) hypertension; J44.9 Chronic obstructive pulmonary disease, unspecified; K29.70 Gastritis, unspecified, without bleeding; K59.09 Other constipation; Z90.49 Acquired absence of other specified parts of digestive tract; Z92.21 Personal history of antineoplastic chemotherapy; Z92.3 Personal history of irradiation; R59.0 Localized enlarged lymph nodes